=== PATIENT | female | born 1930 | race Caucasian/White ===

== ENCOUNTER 2019-07-22 08:06 | Inpatient (IN) | payer OTHER ==
[2019-07-22] VITALS (33 sets, daily range): BP systolic 76–124; BP diastolic 32–57
[~2019-07-22] VITALS: Ht 162.6 cm; Wt 68.5 kg
--- NOTE | 2019-07-22 08:08 | NUR ---
PT [id number] [facility] FOR DECREASE LOC AND HYPOTENSION, PT IS AAOX0 WITHDRAWS TO PAIN, ON MECH VENT VIA TRACH, HOOKED TO PIERCER OPERATOR, KEPT RESTED AND COMFORTABLE, WILL CONTINUE TO MONITOR.
--- NOTE | 2019-07-22 08:16 | NUR ---
SEEN AND EXAMINED BY .
--- NOTE | 2019-07-22 08:20 | NUR ---
RT AT BEDSIDE FOR MECH VENT SET UP.
--- NOTE | 2019-07-22 08:24 | NUR ---
RT NOTE PT PLACED ON VENT PER MD ORDER. SETTINGS ENDORSED BY PARAMEDICS AC 12 450 40% +5. PT HAS SHILEY 8 PERC CUFFED TRACHEOSTOMY TUBE IN PLACE. CUFF INFLATED. TRACH TUBE MIDLINE AND SECURE. ALARMS SET PER PROTOCOL AND AUDIBLE. VENT PLUGGED IN TO RED OUTLET. AMBU BAG AT BED SIDE. Addendum: 07/22/19 at 0826 by SHANNA PALOMINO RT Amended: Links added.
[2019-07-22] MEDS ORDERED: ALBUMIN 25% 12.5 GM/50 ML BOTTLE IV ONE (08:30)
[2019-07-22] MEDS ORDERED: IV NS 0.9% 1,000 ML BAG IV ONE ×2 (08:30→10:00)
--- NOTE | 2019-07-22 08:30 | NUR ---
GUERRA CATH CHANGED.
[2019-07-22] MEDS ORDERED: ALBUMIN 25% 50 ML IV ONE (08:33)
--- NOTE | 2019-07-22 08:41 | NUR ---
ER PHLEB AT BEDSIDE FOR BLOOD DRAW.
--- NOTE | 2019-07-22 09:00 | NUR ---
SKIN CARVER AT BEDSIDE FOR XRAY.
--- NOTE | 2019-07-22 09:08 | NUR ---
TECH AT BEDSIDE FOR US.
[2019-07-22 09:10] LABS: BASOPHILS % (AUTO) 0.2 % (0.0-2.0); HEMATOCRIT 27 % (33-45); HEMOGLOBIN 8.6 g/dL (11.5-14.8); LYMPHOCYTES # (AUTO) 0.3 /CMM (0.8-4.8); LYMPHOCYTES % (AUTO) 2.5 % (20.0-44.0); MEAN CORPUSCULAR HGB CONC 32 g/dl (31.0-36.0); MEAN CORPUSCULAR VOLUME 101 fL (82-100); MONOCYTES # (AUTO) 0.7 /CMM (0.1-1.30); MONOCYTES % (AUTO) 6.2 % (2.0-12.0); NEUTROPHILS % (AUTO) 91.1 % (43.0-81.0); PLATELET COUNT (AUTO) 134 /CMM (150-450); RED BLOOD CELL COUNT(AUTO) 2.67 MIL/uL (4.0-5.2)
[2019-07-22] MEDS ORDERED: MULT-439 PO (09:21)
[2019-07-22] MEDS ORDERED: LEVA1.2528 IH (09:21)
[2019-07-22] MEDS ORDERED: POLY17PO4 PO (09:21)
[2019-07-22] MEDS ORDERED: SODI50DR NS (09:21)
[2019-07-22] MEDS ORDERED: CA C1TAB98 PO (09:21)
[2019-07-22] MEDS ORDERED: ATOR10TA PO (09:21)
[2019-07-22] MEDS ORDERED: LEVO25TA7 PO (09:21)
[2019-07-22] MEDS ORDERED: METO50TA16 PO (09:21)
[2019-07-22] MEDS ORDERED: FLUT16SP NS (09:21)
[2019-07-22] MEDS ORDERED: VITA1CAP PO (09:21)
[2019-07-22] MEDS ORDERED: BISA10SU11 RC (09:21)
[2019-07-22] MEDS ORDERED: ASCO500C16 PO (09:21)
[2019-07-22] MEDS ORDERED: INSU100V7 SQ (09:21)
[2019-07-22] MEDS ORDERED: MELA3TAB PO (09:21)
[2019-07-22] MEDS ORDERED: INSU100V3 IJ (09:21)
[2019-07-22] MEDS ORDERED: ACET-868 PO (09:21)
[2019-07-22] MEDS ORDERED: CHOL10002 PO (09:21)
[2019-07-22] MEDS ORDERED: CHLO473M5 MM (09:21)
[2019-07-22] MEDS ORDERED: MEROPENEM 1 G in IV NS 0.9% 100 ML IV ONE (09:30)
[2019-07-22 09:32] LABS: ALANINE AMINOTRANSFERASE 18 U/L (12-78); ALBUMIN 1.8 g/dL (3.4-5.0); ALKALINE PHOSPHATASE 120 U/L (46-116); ASPARTATE AMINOTRANSFERASE 28 U/L (15-37); B-TYPE NATRIURETIC PEPTIDE 12146 PG/ML (0-125); BILIRUBIN,DIRECT 0.4 mg/dL (0.0-0.2); BILIRUBIN,TOTAL 0.7 mg/dL (0.2-1.0); CALCIUM, SERUM 8.5 mg/dL (8.5-10.1); CARBON DIOXIDE 29 mmol/L (21-32); CHLORIDE 105 mmol/L (98-107); CREATININE 0.7 mg/dL (0.6-1.3); GLUCOSE 115 mg/dL (74-106); POTASSIUM 5.2 mmol/L (3.5-5.1); SODIUM SERUM 140 mmol/L (136-145)
[2019-07-22 09:35] LABS: UREA NITROGEN, BLOOD 87 mg/dL (7-18)
--- NOTE | 2019-07-22 09:51 | NUR ---
PAGED DR. SUMNER
[2019-07-22] MEDS ORDERED: HEPARIN INFUSION/D5W 500 ML IV ONE (09:57)
[2019-07-22] MEDS ORDERED: HEPARIN SODIUM, PORCINE 5000 UNITS/1 ML VIAL ONE (09:57)
[2019-07-22] MEDS ORDERED: HEPARIN INFUSION/D5W 500 ML IV PRN (10:00)
--- NOTE | 2019-07-22 10:13 | NUR ---
ROOM GIVEN 257
[2019-07-22 10:24] LABS: APPEARANCE,URINE Cloudy (CLEAR); BILIRUBIN,URINE SMALL (NEGATIVE); BLOOD, URINE Negative Ery/uL (NEGATIVE); KETONES,URINE 15 (NEGATIVE); LEUKOCYTE ESTERASE ,URINE Trace (NEGATIVE); NITRITE, URINE Negative (NEGATIVE); PROTEIN,URINE 30 mg/dl (NEGATIVE); UGLUCOSE Negative (NEGATIVE); UROBILINOGEN,URINE >=8.0 EU/dL (0.2)
[2019-07-22 10:27] LABS: COLOR,URINE Dark Yellow (YELLOW)
[2019-07-22] MEDS ORDERED: HEPARIN SODIUM,PORCINE/PF 50 UNIT/5 ML DISP.SYRIN IV ONE (10:30)
[2019-07-22 10:33] LABS: BACTERIA,URINE Moderate /HPF (None Seen); RBC,URINE 0-3 /HPF (0-2); SQUAMOUS EPITHELIAL CELL,UR Moderate /HPF (None Seen)
--- NOTE | 2019-07-22 10:35 | NUR ---
PT IS WHEELED TO CT SCAN VIA ALS PROTOCOL.
--- NOTE | 2019-07-22 11:40 | NUR ---
RT RECEIVED PT TRACH'D ON [facility] VENT WITH SETTINGS PER MD ORDER. INTERVENTIONAL RADIOLOGY TECHNOLOGIST DONE. VENT PLUGGED INTO RED OUTLET. SPARE TRACH AND AMBU BAG AT HEAD OF BED. ALARMS ON AND AUDIBLE. SX'D AND MONITORED PRN. NO SOB NOTED AT THIS TIME. WILL CONTINUE TO MONITOR THE PATIENT FOR ANY CHANGES. Addendum: 07/22/19 at 1432 by ESTELA BRADLEY RT Amended: Links added.
--- NOTE | 2019-07-22 11:59 | NUR ---
REPORT GIVEN TO PARAG PEREZ FOR CLARKE. WITH ONGOING HEPARIN DRIP TITRATETO EFFECT.
--- NOTE | 2019-07-22 12:00 | NUR ---
AQUATIC CENTRE MANAGER ADMITTING NOTES: Rec'd report from Adolfo RN. Pt admitted to ICU 257 for SEPTIC SHOCK. Pt rec'd via juanjose accompanied by RN, RT & transporter. Pt on MV via trach, sating at 98%. SR on telemonitor. MATT PICC line patent & intact w/ no s/sx of infection/infiltration noted - w/ Heparin drip x 1100 u/hr (per report started at 10am). Has GT clamped but flushing well. Has FC draining to myranda UOP. Wound photos taken & placed in the chart. Initial wound care done, wound care consult & KCI mattress ordered. Pt oriented to room but unable to comprehend & follow commands at this time. Safety precaution in place w/ bed in lowest & locked pos. Call light w/in reach. 1245 Pt seen & examined by Dr. Barone w/ orders made & carried out. Per MD may remove old PICC line & insert new PICC line d/t presence of DVT MATT. 1300 Pt seen & examined by Dr. Simpson w/ orders may start on insulin sliding scale q6h while NPO. Order dietary consult. Agreed to remove old PICC line & insert new one. CN made aware. PICC line consent signed by Dr. Simpson as RN unable to reach any family members. 1500 Called [facility], spoke w/ Purvi TUTTLE, confirmed that pt is FULL CODE. Flu vaccine given 07/16/19 & PNA vaccine given 07/12/19. 1300 Pt seen & examined by Dr. Simpson w/ orders to may remove old PICC line & insert new PICC line.
[2019-07-22] MEDS ORDERED: FEE PK DOSING 1 MIN EA MC ONE (12:29)
[2019-07-22] MEDS ORDERED: NOREPINEPHRINE 8 MG in IV D5W 500 ML IV PRN ×2 (12:30→13:00)
[2019-07-22] MEDS ORDERED: IV NS 0.9% 1,000 ML IV PRN (12:30)
[2019-07-22] MEDS: Z GUARD REMEDY 4 OZ OINT TP SCH ×2 (12:42→20:17)
[2019-07-22] MEDS: PANTOPRAZOLE 40 MG VIAL IV SCH ×2 (12:46→20:16)
[2019-07-22] MEDS: IV D5/ 0.9% NACL 1,000 ML IV PRN ×2 (13:06→22:26)
--- NOTE | 2019-07-22 13:30 | NUR ---
RT ABG RESULTS SHOWN TO DR JULIO. NO CHANGES AT THIS TIME. CHRIS TUTTLE NOTIFIED AND AWARE OF CHANGES. WILL CONTINUE TO MONITOR THE PATIENT FOR ANY CHANGES. Addendum: 07/22/19 at 1432 by ESTELA BRADLEY RT Amended: Links added.
[2019-07-22 13:31] LABS: ABG BASE EXCESS 1.6 mmol/L; ABG OXYGEN SATURATION 94.2 % (92.0-98.5); ABG PCO2 39.3 mmHg (35.0-45.0); ABG PH 7.437 (7.350-7.450); ABG PO2 72.1 mmHg (75.0-100.0); AaDO2 601.6 mmHg; MetHb 0.3 % (0.0-1.5); PEEP,BG 0 cm H2O; SITE, ABG Left Radial; VT, ABG 450 mL
[2019-07-22] MEDS: HEPARIN INFUSION/D5W 500 ML IV PRN (13:32)
[2019-07-22] MEDS: VANCOMYCIN 1 GM in IV D5W 250ml IV SCH (13:32)
[2019-07-22] MEDS: BLOOD SUGAR DIAGNOSTIC 1 EACH STRIP IN SCH ×2 (17:14→23:13)
[2019-07-22] MEDS: INSULIN REGULAR, HUMAN 100 UNIT/ML 3 ML VIAL SQ PRN (17:15)
[2019-07-22] MEDS ORDERED: CELLULOSE,OXIDIZED 1 PKT EACH MC STA (17:21)
--- NOTE | 2019-07-22 17:30 | NUR ---
FATOU PICC Line insertion done by Charlene TUTTLE. STAT CXR done - results reviewed by RN. Noted moderate bleeding from the FATOU PICC line insertion. Charlene TUTTLE aware. Pressure dressing applied.
--- NOTE | 2019-07-22 18:00 | NUR ---
SPOKE TO DR. JULIO REGARDING CXR RESULTS- COMPLETE ATELECTASIS OF RIGHT LUNG WITH ORDERS RECEIVED FROM MD. RT ONDINA MADE AWARE OF ORDERS. CPT TO RIGHT LUNG Q4H, START MUCOMYST 10% HHN.
--- NOTE | 2019-07-22 18:19 | NUR ---
Rec'd call back from Dr. Vaughn (covering for Dr. Simpson) re: PTT >170 secs. Per MD, follow protocol - check PTT after 6 hours. MD also made aware re: bleeding from FATOU PICC line, agreed for surgicel 1 dose.
--- NOTE | 2019-07-22 18:44 | NUR ---
ASSEMBLER DRY CELL AND BATTERY CLOSING NOTES Pt resting on bed, not in any distress, A/O x1. Tolerating MV settings via trach, sating at 100%. SR on telemonitor. Has MATT PICC line w/ D5NS x 125 cc/hr infusing well, Heparin drip off for now. Has new FATOU PICC line but per Charlene RN do not use for now d/t presence of R lung atelectasis & location of the PICC line tip on R atrium, she will re-evaluate grey. Dressing on FATOU PICC line will be change by Charlene TUTTLE. FC draining well to BSB to myranda UOP. GT kept clamped. Safety precaution kept in place w/ bed in lowest & locked pos. Call light placed w/in reach. Will endorse to PM RN for CLARKE.
--- NOTE | 2019-07-22 19:30 | NUR ---
RN NOTE: RECEIVED PT IN BED AWAKE WITH NO APPARENT DISTRESS NOTED. NO FACIAL GRIMACING OR ANY SIGNS OF PAIN NOTED. ON [facility] VENT, SETTINGS ORDERED. NO SOB NOTED AT THIS TIME. SATURATING WELL. SINUS RHYTHM ON TELE MONITOR HR 86BPM. RIGHT UPPER ARM PICC LINE INTACT AND PATENT, FLUSHING WELL. IVF INFUSING WELL. LEFT UPPER ARM PICC LINE DRESSING CHANGED BY CARLITOS TUTTLE. GUERRA CATH INTACT AND DRAINING WELL. KEPT CLEAN, DRY AND COMFORTABLE. SAFETY AND FALL PRECAUTIONS OBSERVED AND MAINTAINED. WILL CONTINUE TO MONITOR PT.
--- NOTE | 2019-07-22 20:02 | NUR ---
PT RECEIVED TRACH ON MECH VENT WITH THE SETTINGS OF AC 12, 450, PEEP 0, FIO2 100%. PT IS AWAKE . SX'D AND LAVAGED NEEDED. NO RESPIRATORY DISTRESS NOTED AT THIS TIME. KETTLEMAN DONE. TRACH SECURE. VENT ALARMS SET AND AUDIBLE. AMBU BAG AT BEDSIDE. WILL CONTINUE TO MONITOR THE PT.
[2019-07-22] MEDS: MEROPENEM 1 G in IV NS 0.9% 100 ML IV SCH (20:16)
[2019-07-22] MEDS: ACETAMINOPHEN 650 MG/20.3 ML UDC GT PRN (20:16)
[2019-07-22] MEDS: INSULIN GLARGINE, 100 UNIT/ML CARTRIDGE SQ SCH (22:00)
[2019-07-22] MEDS: ALBUTEROL FS 2.5 MG/3 ML VIAL.NEB NEB PRN (22:02)
[2019-07-22] MEDS: ACETYLCYSTEINE 10% SOLN 400 MG/4 ML VIAL NEB SCH (22:02)
--- NOTE | 2019-07-22 23:13 | NUR ---
RN NOTE: LANTUS DUE AT 2200 NOT GIVEN, BS 70MG/DL, PT NPO.
[2019-07-23] VITALS (32 sets, daily range): BP systolic 96–145; BP diastolic 35–81
[2019-07-23] MEDS ORDERED: HEPARIN SODIUM, PORCINE 5000 UNITS/1 ML VIAL IV ONE ×2 (00:30→08:00)
[2019-07-23] MEDS: HEPARIN INFUSION/D5W 500 ML IV PRN ×2 (00:37→22:34)
--- NOTE | 2019-07-23 00:37 | NUR ---
RN NOTE: HEPARIN DRIP RESTARTED PER PROTOCOL, aPTT 39.2. NO SIGNS/SYMPTOMS OF BLEEDING NOTED AT THIS TIME. WILL CONTINUE TO MONITOR PT.
[2019-07-23] MEDS: BLOOD SUGAR DIAGNOSTIC 1 EACH STRIP IN SCH ×4 (05:42→23:07)
[2019-07-23] MEDS: IV D5/ 0.9% NACL 1,000 ML IV PRN ×3 (06:07→23:45)
--- NOTE | 2019-07-23 06:40 | NUR ---
RN NOTE: CALLED LAB TO FOLLOW UP THE aPTT RESULT, PER LAB THEY'RE STILL RUNNING IT.
--- NOTE | 2019-07-23 06:41 | NUR ---
RN NOTE: NO CHANGES NOTED THROUGHOUT THE SHIFT. NO APPARENT DISTRESS NOTED. NO FACIAL GRIMACING OR ANY SIGNS OF PAIN NOTED. ON [facility] VENT, SETTINGS ORDERED. NO SOB NOTED. SUCTIONED NEEDED. SINUS RHYTHM ON TELE MONITOR HR 80 BPM. RIGHT UPPER ARM INTACT AND PATENT, WITH ONGOING IVF OF D5NS RUNNING AT 125ML/HR AND HEPARIN DRIP RUNNING AT 100 UNITS/HR. NO SIGNS/SYMPTOMS OF BLEEDING NOTED. GUERRA CATH INTACT, DRAINED 400ML OF URINE OUPUT. KEPT CLEAN, DRY AND COMFORTABLE. SAFETY AND FALL PRECAUTIONS OBSERVED AND MAINTAINED. WILL ENDORSE TO DAY SHIFT RN FOR CONTINUITY OF CARE. Addendum: 07/23/19 at 0659 by DIONISIO CRUZ RN HEPARIN DRIP RUNNING AT 1200ML/HR PER PROTOCOL
[2019-07-23 06:46] LABS: CALCIUM, SERUM 7.2 mg/dL (8.5-10.1); CREATININE 0.7 mg/dL (0.6-1.3); MAGNESIUM 2.1 mg/dL (1.8-2.4); PHOSPHORUS 3.5 mg/dL (2.5-4.9); POTASSIUM 3.9 mmol/L (3.5-5.1)
[2019-07-23 06:47] LABS: BASOPHILS % (AUTO) 0.1 % (0.0-2.0); LYMPHOCYTES # (AUTO) 0.4 /CMM (0.8-4.8); LYMPHOCYTES % (AUTO) 5.9 % (20.0-44.0); MEAN CORPUSCULAR HGB CONC 33 g/dl (31.0-36.0); MEAN CORPUSCULAR VOLUME 98 fL (82-100); MONOCYTES # (AUTO) 0.4 /CMM (0.1-1.30); MONOCYTES % (AUTO) 5.8 % (2.0-12.0); NEUTROPHILS # (AUTO) 6.5 /CMM (1.8-8.9); NEUTROPHILS % (AUTO) 88.2 % (43.0-81.0); PLATELET COUNT (AUTO) 118 /CMM (150-450); RED BLOOD CELL COUNT(AUTO) 2.08 MIL/uL (4.0-5.2); WHITE BLOOD COUNT (AUTO) 7.4 K/uL (4.3-11.0)
[2019-07-23 07:01] LABS: HEMATOCRIT 20 % (33-45); HEMOGLOBIN 6.6 g/dL (11.5-14.8)
--- NOTE | 2019-07-23 07:01 | NUR ---
RN NOTE: RECEIVED A CALL FROM LAB REGARDING PATIENT'S CRITICAL LOW HGB 6.[address] SUMNER NOTIFIED. NO SIGNS/SYMPTOMS OF BLEEDING NOTED. ENDORSED TO DAY SHIFT RN FOR FOLLOW UP.
--- NOTE | 2019-07-23 07:12 | NUR ---
CHICLE GRINDER FEEDER INITIAL NOTES Rec'd pt on bed, not in any distress, A/O x 1. On MV via trach, sating at 100%. SR on telemonitor. GT clamped for now, NPO status. Has MATT PICC line w/ D5NS x 125 cc/hr & Heparin drip x 1200 u/hr infusing well. Has FC draining to BSB w/ adequate myranda UOP. Has FATOU PICC line - still pending for use, awaiting PICC line nurse. Safety precaution in place w/ bed in lowest & locked pos. Call light placed w/in reach. Will cont to monitor & attend pt needs.
[2019-07-23] MEDS: LEVOTHYROXINE SODIUM 25 MCG TABLET PO SCH (07:54)
--- NOTE | 2019-07-23 08:09 | NUR ---
719 called EPIC air traffic controller re: 6.03/24, pt on heparin drip. awaiting callback. 729 called again EPIC air traffic controller for low H/H. awaiting call back. [address] Vaughn made aware of low H/H while pt on heparin drip. Per , transfuse 1 unit of PRBC & still continue to heparin protocol.
[2019-07-23] MEDS: VANCOMYCIN 1 GM in IV D5W 250ml IV SCH (08:16)
[2019-07-23 08:19] LABS: BAND % (MANUAL) 4 % (0.0-5.0); LYMPHOCYTES % (MANUAL) 6 % (16-48); MONOCYTES % (MANUAL) 5 % (0-11.0); NEUTROPHILS % (MANUAL) 85 (42-76)
[2019-07-23] MEDS: PANTOPRAZOLE 40 MG VIAL IV SCH ×2 (08:37→20:04)
[2019-07-23] MEDS: MEROPENEM 1 G in IV NS 0.9% 100 ML IV SCH ×2 (08:37→20:01)
[2019-07-23] MEDS: Z GUARD REMEDY 4 OZ OINT TP SCH ×2 (08:38→20:04)
--- NOTE | 2019-07-23 10:30 | NUR ---
Pt seen & examined by Dr. Vaughn, updated about pt status. Made him aware re: FATOU PICC line still not being use for now, awaiting PICC line nurse to pull back.
[2019-07-23] MEDS: ACETYLCYSTEINE 10% SOLN 400 MG/4 ML VIAL NEB SCH ×3 (11:32→22:05)
[2019-07-23] MEDS: ALBUTEROL FS 2.5 MG/3 ML VIAL.NEB NEB PRN (11:36)
[2019-07-23] MEDS: INSULIN REGULAR, HUMAN 100 UNIT/ML 3 ML VIAL SQ PRN ×2 (12:35→18:02)
--- NOTE | 2019-07-23 13:05 | NUR ---
1 unit of PRBC transfused w/o BT reaction noted.
--- NOTE | 2019-07-23 14:30 | NUR ---
Stool specimen sent to lab for occult test.
--- NOTE | 2019-07-23 16:00 | NUR ---
Rec'd call back from Dr. Vaughn re: PTT>170 secs. Made him aware that heparin drip was held at 1400, MD agreed & ordered to check PTT after 6 hours then follow protocol.
--- NOTE | 2019-07-23 16:30 | NUR ---
Per Charlene PICC line PRN, FATOU PICC line pulled back by 3cm & is okay to use. CN made aware.
--- NOTE | 2019-07-23 17:00 | NUR ---
Dr. Vaughn made aware re: concern of the son for presence mass. Son requesting if previous records from [facility] can be retrieve. Per , he will talk to Dr. Simpson.
[2019-07-23] MEDS: ACETAMINOPHEN 650 MG/20.3 ML UDC GT PRN (17:59)
--- NOTE | 2019-07-23 18:52 | NUR ---
PROPOSAL ENGINEER CLOSING NOTES Pt resting on bed, not in any distress, A/O x1. Tolerating MV settings via trach, sating at 100%. SR on telemonitor. Has MATT PICC line in place. Has new FATOU PICC line w/ D5NS x 125 cc/hr infusing well, Heparin drip off for now. FC draining well to BSB to myranda UOP. GT kept clamped. Safety precaution kept in place w/ bed in lowest & locked pos. Call light placed w/in reach. Will endorse to PM RN for CLARKE.
[2019-07-23 19:19] LABS: OCCULT BLOOD STOOL POSITIVE (NEGATIVE)
--- NOTE | 2019-07-23 19:45 | NUR ---
RN NOTE: RECEIVED PT IN BED AWAKE, MOUTHS WORDS. NO APPARENT DISTRESS NOTED. NO FACIAL GRIMACING OR ANY SIGNS OF PAIN NOTED. ON [facility] VENT, SETTINGS ORDERED. NO SOB NOTED AT THIS TIME. SATURATING WELL. SINUS RHYTHM ON TELE MONITOR HR 75 BPM. LEFT UPPER ARM PICC LINE INTACT AND PATENT WITH D5NS RUNNING AT 125ML/HR, HEPARIN ON HOLD AT THIS TIME. NO SIGNS/SYMPTOMS OF BLEEDING NOTED. GUERRA CATH INTACT AND DRAINING WELL. KEPT CLEAN, DRY AND COMFORTABLE. SAFETY AND FALL PRECAUTIONS OBSERVED AND MAINTAINED. WILL CONTINUE TO MONITOR PT.
--- NOTE | 2019-07-23 20:42 | NUR ---
RN NOTE: CALLED LAB REGARDING PTT RESULT, PER LAB THEY'RE STILL RUNNING IT.
--- NOTE | 2019-07-23 21:12 | NUR ---
RN NOTE: NOTIFIED KODY MURRAY NP REGARDING PTT RESULT AND POSITIVE STOOL OB. STILL WAITING FOR ORDERS. NO ACTIVE BLEEDING NOTED. WILL CONTINUE TO MONITOR PT.
[2019-07-23 22:25] LABS: BASOPHILS % (AUTO) 0.2 % (0.0-2.0); HEMATOCRIT 26 % (33-45); HEMOGLOBIN 8.3 g/dL (11.5-14.8); LYMPHOCYTES # (AUTO) 0.4 /CMM (0.8-4.8); LYMPHOCYTES % (AUTO) 5.5 % (20.0-44.0); MEAN CORPUSCULAR HGB CONC 33 g/dl (31.0-36.0); MEAN CORPUSCULAR VOLUME 95 fL (82-100); MONOCYTES # (AUTO) 0.4 /CMM (0.1-1.30); MONOCYTES % (AUTO) 6.3 % (2.0-12.0); NEUTROPHILS # (AUTO) 5.7 /CMM (1.8-8.9); PLATELET COUNT (AUTO) 128 /CMM (150-450); RED BLOOD CELL COUNT(AUTO) 2.68 MIL/uL (4.0-5.2); WHITE BLOOD COUNT (AUTO) 6.5 K/uL (4.3-11.0)
[2019-07-23] MEDS ORDERED: PANTOPRAZOLE 40 MG VIAL IV SCH (22:30)
[2019-07-23] MEDS ORDERED: HYDROCORTISONE SOD SUCCINATE 100 MG/2 ML VIAL IV SCH (22:30)
--- NOTE | 2019-07-23 22:30 | NUR ---
RN NOTE: ORDER RECEIVED FROM KODY MURRAY NP TO CONTINUE HEPARIN DRIP BUT DON'T GIVE BOLUS DOSE. ORDER CARRIED OUT AND DONE. WILL CONTINUE TO MONITOR PT.
[2019-07-23] MEDS ORDERED: HYDROCORTISONE SOD SUCCINATE 100 MG/2 ML VIAL IV ONE (23:00)
[2019-07-23] MEDS ORDERED: OCTREOTIDE 500 MCG/ML VIAL ONE (23:04)
[2019-07-23] MEDS: INSULIN GLARGINE, 100 UNIT/ML CARTRIDGE SQ SCH (23:09)
[2019-07-23] MEDS: OCTREOTIDE 1,250 MCG in IV NS 0.9% 247.5 ML IV PRN (23:26)
[2019-07-24] VITALS (25 sets, daily range): BP systolic 92–155; BP diastolic 44–106
[2019-07-24] MEDS: VANCOMYCIN 1 GM in IV D5W 250ml IV SCH ×2 (02:05→20:55)
[2019-07-24 04:41] LABS: BASOPHILS % (AUTO) 0.1 % (0.0-2.0); HEMATOCRIT 28 % (33-45); LYMPHOCYTES # (AUTO) 0.3 /CMM (0.8-4.8); LYMPHOCYTES % (AUTO) 3.6 % (20.0-44.0); MEAN CORPUSCULAR HGB CONC 33 g/dl (31.0-36.0); MEAN CORPUSCULAR VOLUME 96 fL (82-100); MONOCYTES # (AUTO) 0.5 /CMM (0.1-1.30); MONOCYTES % (AUTO) 5.4 % (2.0-12.0); NEUTROPHILS # (AUTO) 7.6 /CMM (1.8-8.9); NEUTROPHILS % (AUTO) 90.9 % (43.0-81.0); PLATELET COUNT (AUTO) 129 /CMM (150-450); RED BLOOD CELL COUNT(AUTO) 2.88 MIL/uL (4.0-5.2); WHITE BLOOD COUNT (AUTO) 8.4 K/uL (4.3-11.0)
[2019-07-24 05:00] LABS: CALCIUM, SERUM 7.6 mg/dL (8.5-10.1); CARBON DIOXIDE 26 mmol/L (21-32); CHLORIDE 112 mmol/L (98-107); CREATININE 0.5 mg/dL (0.6-1.3); GLUCOSE 136 mg/dL (74-106); POTASSIUM 3.4 mmol/L (3.5-5.1); SODIUM SERUM 146 mmol/L (136-145); UREA NITROGEN, BLOOD 58 mg/dL (7-18)
[2019-07-24] MEDS: BLOOD SUGAR DIAGNOSTIC 1 EACH STRIP IN SCH ×3 (06:06→17:23)
--- NOTE | 2019-07-24 06:09 | NUR ---
RN NOTE: RECEIVED A CALL FROM LAB REGARDING PTT RESULT 176. PAGED KODY MURRAY, LOU 3X, STILL AWAITING RESPONSE. CHARGE NURSE AND CABINET WORKER AWARE.
--- NOTE | 2019-07-24 06:20 | NUR ---
RN NOTE: DR. YU CALLED BACK WITH ORDERS TO STOP HEPARIN DRIP FOR 2HRS, THEN AFTER 2HRS RESUME DRIP WITH A RATE OF 1200 UNITS/H. ORDER CARRIED OUT AND DONE. NO ACTIVE BLEEDING NOTED AT THIS TIME.
--- NOTE | 2019-07-24 07:12 | NUR ---
FOAM FABRICATOR INITIAL NOTES Rec'd pt on bed, not in any distress, A/O x 1. On MV via trach, sating at 100%. SR on telemonitor. GT clamped for now, NPO status. Has FATOU PICC line w/ D5NS x 125 cc/hr & Heparin drip off at this time (to restart at 0820 to 1200u/hr as ordered). Has FC draining to BSB w/ adequate myranda UOP. Has MATT PICC line in place. Safety precaution in place w/ bed in lowest & locked pos. Call light placed w/in reach. Will cont to monitor & attend pt needs.
[2019-07-24] MEDS: LEVOTHYROXINE SODIUM 25 MCG TABLET PO SCH (07:32)
--- NOTE | 2019-07-24 07:40 | NUR ---
INVESTMENT TRADER OPENING NOTES Patient resting on bed, asleep but arouses to verbal and tactile stimuli, on mechanical ventilator tolerating settings well, no sob/acute distress noted, A/O to self, mouth words, Serbian speaking, o2 saturation at 100% at this time, SR on telemonitor hr 70s at this time, MATT PICC line in place and Has new FATOU PICC line w/ D5NS x 125 cc/hr, Sandostatin x 10cc/hr & Heparin drip x 1000u/hr infusing well. FC in placed draining well by gravity yellow urine, GT kept clamped tfo, all safety precaution kept in place, bed locked and in lowest position, Call light w/in reach, Will continue to monitor closely.
--- NOTE | 2019-07-24 08:35 | NUR ---
Pt seen & examined by Dr. Vaughn w/ orders made & carried out. updated about pt condition & status. Addendum: 07/24/19 at 1156 by CHRIS PABLO RN Addendum: Asked Dr. Vaughn if MATT PICC line need to be pulled out or keep it for now - no definite orders given by at this time.
[2019-07-24] MEDS ORDERED: POTASSIUM CHLORIDE 20 MEQ POWDER PACKET NG SCH (09:00)
[2019-07-24] MEDS: LACTOBACILLUS RHAMNOSUS GG 1 EACH CAP.SPRINK PO SCH ×2 (09:05→17:23)
[2019-07-24] MEDS: PANTOPRAZOLE 40 MG VIAL IV SCH ×2 (09:05→21:30)
[2019-07-24] MEDS: MEROPENEM 1 G in IV NS 0.9% 100 ML IV SCH ×2 (09:05→21:30)
[2019-07-24] MEDS: Z GUARD REMEDY 4 OZ OINT TP SCH ×2 (09:06→21:31)
--- NOTE | 2019-07-24 09:39 | NUR ---
Trop 0.[address] Guzman w/ NNO.
--- NOTE | 2019-07-24 10:40 | NUR ---
Pt seen & examined by Dr. Ortiz w/ orders made & carried out. Vent changes order to increase fio2 to 50%, PEEP 5. RT aware. Per MD, obtain medical records from [facility]. CPT done on L chest c/o RT John. ABG done after & reviewed by . 1120 Telephone consent to release information got from pt's son Neil. Request was faxed to [facility], receipt placed in the chart.
[2019-07-24] MEDS: ALBUTEROL FS 2.5 MG/3 ML VIAL.NEB NEB PRN ×2 (10:54→21:31)
[2019-07-24] MEDS: ACETYLCYSTEINE 10% SOLN 400 MG/4 ML VIAL NEB SCH ×2 (10:54→21:31)
[2019-07-24] MEDS: IV D5/ 0.9% NACL 1,000 ML IV PRN ×2 (11:25→20:01)
[2019-07-24] MEDS: INSULIN REGULAR, HUMAN 100 UNIT/ML 3 ML VIAL SQ PRN ×2 (12:23→17:23)
[2019-07-24 12:35] LABS: ABG BASE EXCESS -2.6 mmol/L; ABG OXYGEN SATURATION 97.4 % (92.0-98.5); ABG PH 7.417 (7.350-7.450); ABG PO2 110.5 mmHg (75.0-100.0); AaDO2 207.8 mmHg; COHb 1.1 % (0.5-1.5); MetHb 0.3 % (0.0-1.5); PEEP,BG 5 cm H2O; SITE, ABG Left Radial; VT, ABG 450 mL
--- NOTE | 2019-07-24 15:42 | NUR ---
Rec'd call back from Dr. Vaughn re: PTT 145.9 w/ orders to hold Heparin drip for 2 hours then resume at 1000 u/hr. Recheck PTT after 6 hours.
--- NOTE | 2019-07-24 18:54 | NUR ---
FIGURINE MAKER CLOSING NOTES Pt resting on bed, not in any distress, A/O x1. Tolerating MV settings via trach, sating at 100%. SR on telemonitor. Has MATT PICC line in place. Has new FATOU PICC line w/ D5NS x 125 cc/hr, Sandostatin x 10cc/hr & Heparin drip x 1000u/hr infusing well. FC draining well to BSB to myranda UOP. GT kept clamped. Safety precaution kept in place w/ bed in lowest & locked pos. Call light placed w/in reach. Will endorse to PM RN for CLARKE.
[2019-07-24] MEDS: OCTREOTIDE 1,250 MCG in IV NS 0.9% 247.5 ML IV PRN (21:58)
[2019-07-24] MEDS: INSULIN GLARGINE, 100 UNIT/ML CARTRIDGE SQ SCH (22:00)
--- NOTE | 2019-07-24 23:58 | NUR ---
ANODE REBUILDER NOTES, RECEIVED RESULTS FROM LAB FOR PT/PTT AT THIS TIME 124.4, HOLD HEPARIN AT THIS TIME PER PROTOCOL, WILL HOLD FOR ONE HOUR, THEN DECREASE DRIP BY 3 UNITS/KG/H
[2019-07-25] VITALS (24 sets, daily range): BP systolic 97–166; BP diastolic 43–104
[2019-07-25] MEDS: BLOOD SUGAR DIAGNOSTIC 1 EACH STRIP IN SCH ×5 (00:54→23:32)
[2019-07-25] MEDS: HEPARIN INFUSION/D5W 500 ML IV PRN (00:59)
--- NOTE | 2019-07-25 00:59 | NUR ---
SINGE MACHINE OPERATOR NOTES, HEPARIN DRIP STARTED AT THIS TIME AFTER ONE HOUR HOLD PER PROTOCOL, NEW RATE INFUSION 800 UNITS/KG/HR/16ML PER PROTOCOL, AND PTT ORDERED FOR 0700 AM TODAY, WILL CONTINUE TO MONITOR CLOSELY
[2019-07-25 04:35] LABS: BASOPHILS % (AUTO) 0.1 % (0.0-2.0); HEMATOCRIT 28 % (33-45); HEMOGLOBIN 9.2 g/dL (11.5-14.8); LYMPHOCYTES # (AUTO) 0.3 /CMM (0.8-4.8); LYMPHOCYTES % (AUTO) 3.9 % (20.0-44.0); MEAN CORPUSCULAR HGB CONC 33 g/dl (31.0-36.0); MEAN CORPUSCULAR VOLUME 97 fL (82-100); MONOCYTES # (AUTO) 0.5 /CMM (0.1-1.30); MONOCYTES % (AUTO) 6.6 % (2.0-12.0); NEUTROPHILS # (AUTO) 6.9 /CMM (1.8-8.9); NEUTROPHILS % (AUTO) 89.4 % (43.0-81.0); PLATELET COUNT (AUTO) 138 /CMM (150-450); WHITE BLOOD COUNT (AUTO) 7.7 K/uL (4.3-11.0)
[2019-07-25 04:51] LABS: ALANINE AMINOTRANSFERASE 19 U/L (12-78); ALKALINE PHOSPHATASE 91 U/L (46-116); ASPARTATE AMINOTRANSFERASE 15 U/L (15-37); BILIRUBIN,TOTAL 0.9 mg/dL (0.2-1.0); CALCIUM, SERUM 7.7 mg/dL (8.5-10.1); CARBON DIOXIDE 28 mmol/L (21-32); CHLORIDE 113 mmol/L (98-107); CREATININE 0.5 mg/dL (0.6-1.3); GLUCOSE 235 mg/dL (74-106); MAGNESIUM 1.9 mg/dL (1.8-2.4); PHOSPHORUS 2.9 mg/dL (2.5-4.9); POTASSIUM 3.9 mmol/L (3.5-5.1); SODIUM SERUM 146 mmol/L (136-145); TOTAL PROTEIN, SERUM 4.3 g/dL (6.4-8.2); UREA NITROGEN, BLOOD 46 mg/dL (7-18)
[2019-07-25 05:03] LABS: ALBUMIN 1.3 g/dL (3.4-5.0)
[2019-07-25] MEDS: IV D5/ 0.9% NACL 1,000 ML IV PRN ×3 (05:36→23:32)
[2019-07-25] MEDS: INSULIN REGULAR, HUMAN 100 UNIT/ML 3 ML VIAL SQ PRN ×3 (06:23→17:44)
--- NOTE | 2019-07-25 07:35 | NUR ---
CONCILIATION COURT JUDGE OPENING NOTES Patient awake at this time, on mechanical ventilator tolerating settings well, no sob/acute distress noted, A/O to self, mouth words, Persian speaking, o2 saturation at 100% at this time, SR on telemonitor hr 70s-80s most of the night, MATT PICC line in place and Has new FATOU PICC line w/ D5NS x 125 cc/hr, Sandostatin x 10cc/hr & Heparin drip x 800u/hr infusing well, and patient tolerated well, ptt again at 0700, awaiting for results, FC in placed draining well by gravity yellow/myranda urine, GT kept clamped tfo, all safety precaution kept in place, albumin 1.3 this morning, reported to Enrique with no new orders, Bed locked and in lowest position, Call light w/in reach, endorsed to PARAG Garcia for continuation of care.
[2019-07-25] MEDS: LACTOBACILLUS RHAMNOSUS GG 1 EACH CAP.SPRINK PO SCH ×2 (08:29→16:16)
[2019-07-25] MEDS: LEVOTHYROXINE SODIUM 25 MCG TABLET PO SCH (08:29)
[2019-07-25] MEDS: PANTOPRAZOLE 40 MG VIAL IV SCH ×2 (08:29→21:02)
[2019-07-25] MEDS: MEROPENEM 1 G in IV NS 0.9% 100 ML IV SCH (08:30)
[2019-07-25] MEDS: ACETYLCYSTEINE 10% SOLN 400 MG/4 ML VIAL NEB SCH ×2 (08:49→21:00)
[2019-07-25 09:10] LABS: ABG BASE EXCESS -0.6 mmol/L; ABG OXYGEN SATURATION 98.6 % (92.0-98.5); ABG PCO2 37.3 mmHg (35.0-45.0); ABG PH 7.421 (7.350-7.450); ABG PO2 222.2 mmHg (75.0-100.0); AaDO2 164.6 mmHg; COHb 0.5 % (0.5-1.5); MetHb 0.3 % (0.0-1.5); O2Hb 97.8 % (94.0-97.0); PEEP,BG 5 cm H2O; SITE, ABG Right Radial; VENT MODE, BG AC 12 450 60% +5; VT, ABG 450 mL
[2019-07-25] MEDS: Z GUARD REMEDY 4 OZ OINT TP SCH ×2 (09:12→21:03)
--- NOTE | 2019-07-25 09:26 | NUR ---
WOUND CARE CONSULT: PT PRESENTS WITH MULTIPLE SKIN ISSUES INCLUDING PROFOUND GENERALIZED EDEMA WITH WEEPING OF LEFT UPPER EXTREMITY AND 3+ PITTING OF LOWER EXTREMITIES WITH RT POSTERIOR LOWER LEG WOUND, SACRAL STAGE 4 NECROTIC WOUND WITH FOUL ODOR, RT BUTTOCK INTACT DEEP TISSUE INJURY, PERIANAL INCONTINENCE ASSOCIATED SKIN DAMAGE AND MIDBACK SCARRING, ALL PRESENT ON ADMISSION. RECOMMEND DPM CONSULT FOR RT LOWER LEG WOUND. DR RUIZ AWARE OF DPM CONSULT REQUEST. SURGICAL CONSULT REQUESTED FOR SACRAL WOUND. DR WILLINGHAM AWARE OF SURGICAL CONSULT REQUEST. PT ON FIRST STEP CIRRUS LOW AIRLOSS MATTRESS. ALL SKIN PROTECTION RECOMMENDATIONS DISCUSSED WITH NURSING STAFF. DEFER TO SURGICAL TEAM AND DPM FOR WOUND TREATMENT PLAN. WILL SEE PRShwetha HANSON IN AGREEMENT WITH PLAN OF CARE.
--- NOTE | 2019-07-25 09:37 | NUR ---
RN NOTE: CALLED AND SPOKE WITH MR. SHANNA MEDEIROS (SON) AND VERIFIED WITH HIM IF HE WILL BE CONSENTING FOR THE BRONCHOSCOPY WITH POSSIBLE BIOPSY PER DR. JULIO BY TOMORROW. AND SON GAVE A TELEPHONE CONSENT AND WAS VERIFIED WITH ANOTHER NURSE, Sonya HARDEN RN. CONSENT WAS SIGNED AND FILED TO PATIENT'S CHART.
[2019-07-25] MEDS ORDERED: SILVER NITRATE APPLICATOR 1 EA BOX TP ONE (11:30)
[2019-07-25] MEDS ORDERED: LIDOCAINE 1%-EPI 1:100,000 20 ML VIAL TP ONE (11:30)
--- NOTE | 2019-07-25 12:00 | NUR ---
RN NOTE: CALLED AND PAGED JARRET RIBEIRO NP FOR GI REGARDING THE PENDING CONSULTATION FOR THE PATIENT. AWAITING FOR HALF SECTION IRONER'S RESPONSE.
--- NOTE | 2019-07-25 12:03 | NUR ---
RN NOTE: CALLED AND LEFT A VOICE MESSAGE TO SHANNA MEDEIROS (SON) REGARDING THE SERIAL SACRUM DEBRIDEMENT PLAN FROM Jaimee SHEA, WOUND CARE PA. AWAITING FOR CALL BACK.
--- NOTE | 2019-07-25 12:32 | NUR ---
RN NOTE: RECEIVED A RESPONSE FROM JARRET RIBEIRO NP AND ACCORDING TO HER SHE WILL SEE THE PATIENT LATER TODAY.
[2019-07-25] MEDS: DAKINS QUARTER STRENGTH (0.125%) 480 ML BOTTLE TOP SCH (13:00)
[2019-07-25] MEDS: CLOTRIMAZOLE 1% 15 GM TUBE TP SCH ×2 (13:00→16:17)
[2019-07-25] MEDS: VANCOMYCIN 1 GM in IV D5W 250ml IV SCH (13:01)
--- NOTE | 2019-07-25 13:29 | NUR ---
RN NOTE: RECEIVED A CALL BACK FROM SHANNA MEDEIROS, SON AND HE VERBALLY CONSENTED OVER THE TELEPHONE FOR THE SERIAL DEBRIDEMENT OF THE SACRUM AND WAS VERIFIED WITH CHARGE NURSE PARAG JOVEL. INFORMED CONSENT WAS FILED TO THE PATIENT'S CHART.
--- NOTE | 2019-07-25 15:00 | NUR ---
RN NOTE: DR. GAVIN AND Jaimee SHEA PERFORMED THE BEDSIDE SACRUM DEBRIDEMENT. PATIENT TOLERATED IT WELL. TOOK PICTURE OF THE SACRUM S/P DEBRIDEMENT AND FILED TO PATIENT'S CHART.
--- NOTE | 2019-07-25 15:29 | NUR ---
RN NOTE: CALLED AND PAGED DR. SUMNER REGARDING THE URINE CULTURE + FOR CRE AND KLEBSEILLA PNEUMONIAE. PATIENT PLACED ON CONTACT ISOLATION AND PER MD, HE WILL CALL INFECTIOUS DISEASE TO FOLLOW THE CASE.
[2019-07-25] MEDS: OCTREOTIDE 1,250 MCG in IV NS 0.9% 247.5 ML IV PRN (16:09)
--- NOTE | 2019-07-25 16:14 | NUR ---
RN NOTE: DR. JULIO GAVE A VERBAL ORDER FOR A LIDOCAINE 2% JELLY FOR THE BRONCHOSCOPY TOMORROW. ORDER NOTED AND CARRIED OUT.
[2019-07-25] MEDS ORDERED: PEG 3350/NA SULF,BICARB,CL/KCL 4,000 ML BOTTLE PO ONE ×2 (17:30→20:00)
[2019-07-25] MEDS ORDERED: NA PHOS,M-B/NA PHOS,DI-BA 1 EA ENEMA RC PRN (17:30)
[2019-07-25] MEDS ORDERED: MAGNESIUM CITRATE 296 ML BOTTLE PO ONE (17:30)
[2019-07-25] MEDS: SUCRALFATE 1 G/10 ML UDC GT SCH ×2 (17:41→21:02)
[2019-07-25] MEDS ORDERED: FEE PK DOSING 1 MIN EA MC ONE (18:18)
[2019-07-25] MEDS ORDERED: DOSING PER PHARMACY-AMIKACI IV XX PRN (18:30)
--- NOTE | 2019-07-25 19:55 | NUR ---
RN NOTE: BEDSIDE REPORT WAS GIVEN TO PM SHIFT NURSE FOR CONTINUITY OF CARE. PATIENT CONTINUED TO BE ON HEPARIN DRIP PER PROTOCOL AND NO ACTIVE BLEEDING NOTED. SEEN BY JARRET RIBEIRO NP AND ORDERED EGD/COLONOSCOPY FOR TOMORROW AT 0730. PATIENT ON CONTACT ISOLATION FOR CRE URINE.
[2019-07-25] MEDS: AMIKACIN 500 MG in IV D5W 100 ML IV SCH (20:13)
--- NOTE | 2019-07-25 20:21 | NUR ---
FISHER SCALLOP NOTE OBTAINED CONSENT FOR COLONOSCOPY AND EGD WITH PATIENT SON SHANNA MEDEIROS AT [phone]. CONSENT WITNESSED BY ANASTASIIA TUTTLE
[2019-07-25] MEDS ORDERED: CLINDAMYCIN IV RTU IN D5W 900 MG/50 ML PIGGYBACK IV SCH (21:00)
[2019-07-25] MEDS: CLINDAMYCIN 900 MG in IV D5W 50 ML IV SCH (21:02)
[2019-07-25] MEDS: INSULIN GLARGINE, 100 UNIT/ML CARTRIDGE SQ SCH (23:31)
[2019-07-26] VITALS (27 sets, daily range): BP systolic 71–155; BP diastolic 40–106
--- NOTE | 2019-07-26 | NUR ---
IT RISK ANALYST NOTE COMPLETED GOLYTELY ALL 4000 ML COMPLETED FROM [id number].
--- NOTE | 2019-07-26 01:30 | NUR ---
TUMBLER MACHINE OPERATOR NOTE HEPARIN HELD PER MINIBUS DRIVER ORDER TO HOLD 6 HOURS BEFORE 0730 EGD/ COLONOSCOPY. RN WILL CONTINUE TO MONITOR.
[2019-07-26] MEDS ORDERED: OCTREOTIDE 500 MCG/ML VIAL ONE (04:49)
[2019-07-26 05:09] LABS: CALCIUM, SERUM 7.9 mg/dL (8.5-10.1); CARBON DIOXIDE 24 mmol/L (21-32); CHLORIDE 114 mmol/L (98-107); CREATININE 0.4 mg/dL (0.6-1.3); GLUCOSE 60 mg/dL (74-106); SODIUM SERUM 145 mmol/L (136-145); UREA NITROGEN, BLOOD 37 mg/dL (7-18)
[2019-07-26] MEDS: BLOOD SUGAR DIAGNOSTIC 1 EACH STRIP IN SCH ×3 (05:49→17:09)
[2019-07-26] MEDS: CLINDAMYCIN 900 MG in IV D5W 50 ML IV SCH ×3 (05:49→22:37)
[2019-07-26] MEDS: DEXTROSE 50%-WATER 50 ML DISP.SYRIN IV PRN ×3 (06:08→17:09)
--- NOTE | 2019-07-26 06:10 | NUR ---
SERVICE GIRL NOTE BLOOD SUGAR CHECK WAS 52 RECHECKED AND WAS 43. D50 PUSHED PER PROTOCOL WILL EVALUATE AT 0638
--- NOTE | 2019-07-26 07:00 | NUR ---
ICU/RN AM SHIFT INITIAL NOTES RECEIVED PT ASLEEP IN BED, EASILY AROUSED, PT A/O X 1, ABLE TO MOUTH WORDS IN ARMENIAN. NO ACUTE DISTRESS OR GRIMACING NOTED. ON VENTILATOR WITH RATES SET PRESCRIBED, SATURATING @ 100%, RESPIRATIONS EVEN & UNLABORED, LUNG SOUNDS DIMINISHED, SUCTIONED FOR AIRWAY CLEARANCE. ON TELE WITH SINUS RHYTHM, HR 66. PT NOTED WITH GENERALIZED ANASARCA. PT WITH ON GOING IV INFUSION OF SANDOSTATIN @ 50MC/HR AND D5NS @ 125CC/HR, PICC LINE ON LEFT UPPER ARM PATENT WITH NO S/S OF INFECTION. GUERRA CATHETER INTACT WITH YELLOW URINE OUTPUT. PT PLACED ON NPO EXCEPT MEDS FOR SCHEDULED EGD/COLONOSCOPY @ 0730 AND BRONCHOSCOPY @ 1500. PT IS COMFORTABLE, SCHEDULED AM MEDS TO BE GIVEN. CL WITHIN REACHED, SAFETY MAINTAINED AND ISOLATION OBSERVED. ON GOING MONITORING.
[2019-07-26] MEDS: ACETYLCYSTEINE 10% SOLN 400 MG/4 ML VIAL NEB SCH ×2 (07:36→21:32)
[2019-07-26] MEDS: IV D5/ 0.9% NACL 1,000 ML IV PRN ×2 (09:04→23:59)
[2019-07-26] MEDS: POTASSIUM CL. PREMIX PERIPHER. 50 ML IV SCH ×6 (09:08→17:05)
[2019-07-26] MEDS: SUCRALFATE 1 G/10 ML UDC GT SCH ×4 (09:16→21:13)
[2019-07-26] MEDS: PANTOPRAZOLE 40 MG VIAL IV SCH ×2 (09:16→21:13)
[2019-07-26] MEDS: LACTOBACILLUS RHAMNOSUS GG 1 EACH CAP.SPRINK PO SCH ×2 (09:17→17:04)
[2019-07-26] MEDS: LEVOTHYROXINE SODIUM 25 MCG TABLET PO SCH (09:17)
[2019-07-26] MEDS: DAKINS QUARTER STRENGTH (0.125%) 480 ML BOTTLE TOP SCH (09:17)
[2019-07-26] MEDS: CLOTRIMAZOLE 1% 15 GM TUBE TP SCH ×2 (09:18→17:04)
[2019-07-26] MEDS: Z GUARD REMEDY 4 OZ OINT TP SCH ×2 (09:18→21:14)
[2019-07-26 10:25] LABS: ABG BASE EXCESS -1.8 mmol/L; ABG OXYGEN SATURATION 97.8 % (92.0-98.5); ABG PCO2 40.9 mmHg (35.0-45.0); ABG PH 7.374 (7.350-7.450); ABG PO2 133.9 mmHg (75.0-100.0); AaDO2 104.3 mmHg; COHb 0.5 % (0.5-1.5); MetHb 0.4 % (0.0-1.5); O2Hb 96.9 % (94.0-97.0); SITE, ABG Right Radial
--- NOTE | 2019-07-26 11:45 | NUR ---
ICU/RN ROUNDS - DR. SUMNER UPDATED PT'S CONDITION. PT SEEN & EXAMINED BY DR. SUMNER. CLARIFIED WITH MD REGARDING INFUSION OF HEPARIN, PER MD NO BOLUS, RE-START HEPARIN WITH PREVIOUS DOSE AND DRAW PTT SIX HOURS AFTER INFUSION STARTED, NOTED. CHARGE NURSE AND PHARMACY MADE AWARE. NO OTHER VERBAL ORDER RECEIVED.
[2019-07-26] MEDS ORDERED: LIDOCAINE 2% JEL 5 ML TUBE MC ONE (12:00)
--- NOTE | 2019-07-26 13:00 | NUR ---
ICU/RN POSTPONED - EGD/COLONOSCOPY PER OR STAFF EGD/COLONOSCOPY POSTPONED FOR TOMORROW.
[2019-07-26] MEDS ORDERED: ANESTHESIA TRAY IN PYXIS 1 EA TRAY MC ONE (13:36)
[2019-07-26] MEDS: SILVER SULFADIAZINE CREAM 25 GM TUBE TP SCH (14:48)
[2019-07-26] MEDS ORDERED: PROPOFOL 100 ML IV PRN (15:30)
--- NOTE | 2019-07-26 15:45 | NUR ---
RT BRONCH DONE BY DR JULIO. PATIENT TIA WELL.
--- NOTE | 2019-07-26 15:45 | NUR ---
ICU/RN BRONCHOSCOPY PT SEDATED, DR. JULIO WITH 2 RT AND CHARGE NURSE AT BEDSIDE ASSISTING FOR BRONCHOSCOPY PROCEDURE. ON GOING MONITORING.
[2019-07-26] MEDS: HEPARIN INFUSION/D5W 500 ML IV PRN (16:06)
--- NOTE | 2019-07-26 17:30 | NUR ---
ICU/RN AFTERNOON ROUNDS PM CARE PROVIDED. NOTED WITH LOW BLOOD GLUCOSE, PROTOCOL INITIATED. ON GOING MONITORING, WILL RE-CHECK.
--- NOTE | 2019-07-26 19:30 | NUR ---
ICU/RN AM SHIFT END NOTES LATEST BLOOD GLUCOSE 70. ALL NEEDS MET. PT ENDORSED TO PM NURSE TO CONTINUE CARE. CL WITHIN REACHED, SAFETY MAINTAINED AND ISOLATION OBSERVED.
[2019-07-26] MEDS: AMIKACIN 500 MG in IV D5W 100 ML IV SCH (21:03)
[2019-07-26] MEDS: INSULIN GLARGINE, 100 UNIT/ML CARTRIDGE SQ SCH (21:14)
[2019-07-27] VITALS (33 sets, daily range): BP systolic 75–174; BP diastolic 38–112
--- NOTE | 2019-07-27 | NUR ---
RECEIVED PATIENT ON THE VENTILATOR VIA TRACHEOSTOMY ,ON AC MODE,BREATHING REGULAR AND NON LABORED,NOT IN ANY DISTRESS,A LITTLE DROWSY BUT EASILY AROUSABLE, OPENS EYES , + COUGH,GAG.WITHDRAWS TO PAIN.ON HEPARIN DRIP(HELD AT 2300 PER PROTOCOL FOR PTT OF 97.7)RESUMED AT 500 UNITS /HR (DECREASED FROM 700 UNITS PER PROTOCOL. ON SANDOSTATIN DRIP . PICC LINE @ MATT (NOT BEING USED + DVT RIGHT ARM),PICC LINE @ FATOU. G TUBE CLAMPED(NPO FOR EGD/COLONOSCOPY IN AM). + GENERALIZED EDEMA. HEPARIN DRIP RESUMED NOW AT 500 UNITS/HR.
[2019-07-27] MEDS: HEPARIN INFUSION/D5W 500 ML IV PRN (00:02)
[2019-07-27] MEDS: BLOOD SUGAR DIAGNOSTIC 1 EACH STRIP IN SCH ×5 (00:23→23:16)
--- NOTE | 2019-07-27 02:00 | NUR ---
STABLE,AWAKE,ALERT.NO S/S OF ANY BLEEDING.
[2019-07-27] MEDS: OCTREOTIDE 1,250 MCG in IV NS 0.9% 247.5 ML IV PRN (02:28)
--- NOTE | 2019-07-27 03:30 | NUR ---
HEPARIN DRIP STOPPED (6 HOURS PRIOR TO SCHEDULED EGD/COLONOSCOPY@ 0930).
--- NOTE | 2019-07-27 04:00 | NUR ---
REMAINS STABLE,NO BLEEDING NOTED.AWAKE,ALERT.
[2019-07-27] MEDS: CLINDAMYCIN 900 MG in IV D5W 50 ML IV SCH ×3 (04:47→21:00)
[2019-07-27 05:13] LABS: CALCIUM, SERUM 7.8 mg/dL (8.5-10.1); CARBON DIOXIDE 25 mmol/L (21-32); CHLORIDE 112 mmol/L (98-107); CREATININE 0.5 mg/dL (0.6-1.3); GLUCOSE 234 mg/dL (74-106); POTASSIUM 3.6 mmol/L (3.5-5.1); SODIUM SERUM 143 mmol/L (136-145); UREA NITROGEN, BLOOD 32 mg/dL (7-18)
--- NOTE | 2019-07-27 06:00 | NUR ---
STATUS UNCHANGED,AWAKE,ALERT.NO BLEEDING NOTED.
[2019-07-27] MEDS: INSULIN REGULAR, HUMAN 100 UNIT/ML 3 ML VIAL SQ PRN ×3 (06:15→18:37)
--- NOTE | 2019-07-27 07:00 | NUR ---
REPORT GIVEN TO ELLIS TUTTLE.
[2019-07-27] MEDS: LEVOTHYROXINE SODIUM 25 MCG TABLET PO SCH (07:30)
[2019-07-27] MEDS: SUCRALFATE 1 G/10 ML UDC GT SCH ×4 (07:30→21:01)
--- NOTE | 2019-07-27 07:41 | NUR ---
VOIP TECHNICIAN NOTES RECEIVED BEDSIDE REPORT. PATIENT A/ O 1-2 INDONESIAN SPEAKING. NO SIGNS OR SYMPTOMS OF RESPIRATORY DISTRESS TOLERATING VENT SETTINGS ORDERED AC 12 VT 450 O2 40% PEEP 5. NO C/O PAIN. GT CLAMPED MEDS ONLY AWAITING FOR PROCEDURE THIS AM. FATOU PICC RUNNING IVF D5NS @ 125 ML/HR AND OCTREOTIDE @ 50 MCG. HEPARIN ON HOLD FOR PROCEDURE. GUERRA CATH DRAINING CLEAR YELLOW URINE. SAFETY PRECAUTIONS IN PLACE BED IN LOW ISMA POSITION.WILL CONT TO MONITOR ACCORDINGLY
[2019-07-27] MEDS: ACETYLCYSTEINE 10% SOLN 400 MG/4 ML VIAL NEB SCH ×2 (07:57→21:40)
[2019-07-27] MEDS: LACTOBACILLUS RHAMNOSUS GG 1 EACH CAP.SPRINK PO SCH ×2 (08:35→17:38)
[2019-07-27] MEDS: DAKINS QUARTER STRENGTH (0.125%) 480 ML BOTTLE TOP SCH (08:36)
[2019-07-27] MEDS: CLOTRIMAZOLE 1% 15 GM TUBE TP SCH ×2 (08:37→17:26)
[2019-07-27] MEDS: SILVER SULFADIAZINE CREAM 25 GM TUBE TP SCH (08:37)
[2019-07-27] MEDS: Z GUARD REMEDY 4 OZ OINT TP SCH ×2 (08:37→21:00)
[2019-07-27] MEDS: PANTOPRAZOLE 40 MG VIAL IV SCH ×2 (08:38→20:59)
[2019-07-27] MEDS: IV D5/ 0.9% NACL 1,000 ML IV PRN ×2 (08:39→17:22)
[2019-07-27 09:05] LABS: BASOPHILS % (AUTO) 0.2 % (0.0-2.0); EOSINOPHILS % (AUTO) 0.2 % (0.0-6.0); HEMATOCRIT 28 % (33-45); LYMPHOCYTES # (AUTO) 0.1 /CMM (0.8-4.8); LYMPHOCYTES % (AUTO) 2.6 % (20.0-44.0); MEAN CORPUSCULAR HGB CONC 32 g/dl (31.0-36.0); MEAN CORPUSCULAR VOLUME 98 fL (82-100); MONOCYTES # (AUTO) 0.2 /CMM (0.1-1.30); MONOCYTES % (AUTO) 5.3 % (2.0-12.0); NEUTROPHILS # (AUTO) 4.1 /CMM (1.8-8.9); NEUTROPHILS % (AUTO) 91.7 % (43.0-81.0); PLATELET COUNT (AUTO) 103 /CMM (150-450); WHITE BLOOD COUNT (AUTO) 4.5 K/uL (4.3-11.0)
[2019-07-27 09:29] LABS: BILIRUBIN,DIRECT 0.3 mg/dL (0.0-0.2); BILIRUBIN,TOTAL 0.6 mg/dL (0.2-1.0); MAGNESIUM 1.8 mg/dL (1.8-2.4); PHOSPHORUS 3.2 mg/dL (2.5-4.9)
[2019-07-27 09:32] LABS: ALBUMIN 1.2 g/dL (3.4-5.0)
--- NOTE | 2019-07-27 09:34 | NUR ---
MEDS NOT GIVEN PATIENT NPO SURGERY STATUS
--- NOTE | 2019-07-27 09:37 | NUR ---
GI TEAM HERE FOR EGD COLONOSCOPY AT BEDSIDE
--- NOTE | 2019-07-27 09:47 | NUR ---
CRITICAL LAB VALUE CALLED ALBUMIN 1.[address] SUMNER
[2019-07-27 09:50] LABS: BAND % (MANUAL) 1 % (0.0-5.0); LYMPHOCYTES % (MANUAL) 1 % (16-48); MONOCYTES % (MANUAL) 3 % (0-11.0); MYELOCYTES % 1 % (0-0); NEUTROPHILS % (MANUAL) 94 (42-76)
--- NOTE | 2019-07-27 10:15 | NUR ---
EGD COMPLETE AT BEDSIDE PATIENT CLEANED AND REPOSITIONED FOR COMFORT.
--- NOTE | 2019-07-27 10:55 | NUR ---
CALL TO DR SUMNER IN REGARDS TO HEPARIN DRIP LAST aPTT 43.7
--- NOTE | 2019-07-27 11:22 | NUR ---
SPOKE WITH PHARMACY HEIDI. PIERRE TO RESUME HEPARIN AT PREVIOUS DOSE AND HAVE aPTT DRAWN IN 6 HRS.
--- NOTE | 2019-07-27 12:30 | NUR ---
WOUND CARE DONE WITH HITESH LINES CHANGED ORAL CARE DONE. PATIENT WEEPING FROM ALL EXTREMITIES
[2019-07-27] MEDS ORDERED: LIDOCAINE 1%-EPI 1:100,000 50 ML VIAL IJ ONE (13:30)
[2019-07-27] MEDS ORDERED: GLUCERNA 1.2 1,000 ML BOTTLE NG PRN (17:00)
--- NOTE | 2019-07-27 19:22 | NUR ---
GTF STARTED AT 35 ML/HR ORDERED HEPARIN LEVELS DRAWN AND ADJUSTED PER PROTOCOL
--- NOTE | 2019-07-27 19:23 | NUR ---
REPORT ENDORSED TO NOC
--- NOTE | 2019-07-27 19:25 | NUR ---
MEDICAL RECORD CONSULTANT RCD PT W/DX SEPTIC SHOCK; PT IS ALERT ABLE TO MOUTH WORDS. NSR ON MONITOR. SHILEY 6 W/VENT SETTINGS AC 12 450 40% +5. PROVIDED ORAL CARE. GUERRA CATH DRAINING CLEAR YELLOW URINE. MATT PICC PER REPORT NOT TO BE REMOVED; DVT ON RIGHT ARM. FATOU PICC LINE D5NS @ 125 ML/HR AND HEPARIN DRIP AT 400 UNITS/HR W/PTT @ 0100. GLUCERNA 1.2 @ 35 ML/HR W/A GOAL RATE OF 75 ML/HR. NO RESIDUAL AT THIS TIME. CONTINUE TO MONITOR.
--- NOTE | 2019-07-27 20:00 | NUR ---
VEST TAILOREYELET RIVETER TREATMENT NOT DONE PER PREVIOUS SHIFT; APPLIED XEROFORM AND MEPILEX TO RIGHT BUTTOCKS AND APPLIED SILVADENE AND MEPILEX TO RIGHT LEG OPEN WOUNDS.
[2019-07-27] MEDS: AMIKACIN 500 MG in IV D5W 100 ML IV SCH (20:01)
--- NOTE | 2019-07-27 20:30 | NUR ---
TECHNICAL SPEC NOTED HEAD CT ORDERED FROM 07/26 NOT ENDORSED BY PREVIOUS SHIFT.
[2019-07-27] MEDS: INSULIN GLARGINE, 100 UNIT/ML CARTRIDGE SQ SCH (22:31)
[2019-07-28] VITALS (33 sets, daily range): BP systolic 90–158; BP diastolic 47–104
--- NOTE | 2019-07-28 02:10 | NUR ---
FORENSIC TECHNICIAN PT TAKEN FOR HEAD CT.
--- NOTE | 2019-07-28 03:00 | NUR ---
TRAM OPERATOR PTT 45.8 ROUNDED TO 46 PER HEPARIN PROTOCOL NO CHANGE AT THIS TIME; RECHECK PTT IN 6 HRS.
[2019-07-28] MEDS: IV D5/ 0.9% NACL 1,000 ML IV PRN ×2 (03:20→21:30)
[2019-07-28 04:17] LABS: CALCIUM, SERUM 7.9 mg/dL (8.5-10.1); CARBON DIOXIDE 26 mmol/L (21-32); CHLORIDE 114 mmol/L (98-107); CREATININE 0.4 mg/dL (0.6-1.3); GLUCOSE 94 mg/dL (74-106); POTASSIUM 2.9 mmol/L (3.5-5.1); SODIUM SERUM 144 mmol/L (136-145); UREA NITROGEN, BLOOD 29 mg/dL (7-18)
[2019-07-28] MEDS: CLINDAMYCIN 900 MG in IV D5W 50 ML IV SCH ×2 (04:50→12:58)
[2019-07-28] MEDS: HEPARIN INFUSION/D5W 500 ML IV PRN ×2 (04:51→23:12)
[2019-07-28] MEDS: BLOOD SUGAR DIAGNOSTIC 1 EACH STRIP IN SCH ×4 (06:02→23:29)
--- NOTE | 2019-07-28 07:00 | NUR ---
ASSISTANT BOILER OPERATOR AM NOTE PATIENT IN BED ALERT ORIENTED X2. TRACH, GTUBE FLUSHING WELL NO RESIDUAL. IV PATENT AND INTACT. FATOU PICC DO NOT USE DUE TO DVT PER MD ORDER. PTT REPEAT AT 0730. POTASSIUM LOW MD AWARE NEW ORDERS TO CARRY OUT. FC DRAINING WELL YELLOW URINE. GENERALIZED WHEEPING ALL EXTREMETIES. LEADS ON NSR ON MONITOR. NO PAIN VITALS WNL.
[2019-07-28] MEDS: ACETYLCYSTEINE 10% SOLN 400 MG/4 ML VIAL NEB SCH ×2 (08:02→21:38)
[2019-07-28] MEDS: LACTOBACILLUS RHAMNOSUS GG 1 EACH CAP.SPRINK PO SCH ×2 (08:23→16:55)
[2019-07-28] MEDS: SUCRALFATE 1 G/10 ML UDC GT SCH ×4 (08:23→21:52)
[2019-07-28] MEDS: LEVOTHYROXINE SODIUM 25 MCG TABLET PO SCH (08:23)
[2019-07-28] MEDS: POTASSIUM CHLORIDE 20 MEQ POWDER PACKET NG SCH ×4 (08:23→12:21)
[2019-07-28] MEDS: PANTOPRAZOLE 40 MG VIAL IV SCH ×2 (08:23→21:48)
[2019-07-28] MEDS: SILVER SULFADIAZINE CREAM 25 GM TUBE TP SCH (08:24)
[2019-07-28] MEDS: Z GUARD REMEDY 4 OZ OINT TP SCH ×2 (08:24→21:51)
[2019-07-28] MEDS: DAKINS QUARTER STRENGTH (0.125%) 480 ML BOTTLE TOP SCH (08:25)
[2019-07-28] MEDS: CLOTRIMAZOLE 1% 15 GM TUBE TP SCH ×2 (08:26→16:56)
[2019-07-28] MEDS ORDERED: IV D5/0.45 NACL 1,000 ML IV ONE ×2 (09:00→10:30)
--- NOTE | 2019-07-28 09:30 | NUR ---
QA REVIEWER NOTE NEW ORDERS FOR US GUIDED THORACENTESIS CONSENT IN CHART AND SIGNED. SUPPLIES AT BEDSIDE. HEPARIN STOPPED AT 0930 PER PELEG, PROCEDURE MAY BE DONE 4 HRS AFTER HEPARIN STOP 1330. DO NOT USE MATT PICCLINE DUE TO DVT . SEND TO LAB FOR CYTOLOGY AFTER FLUID COLLECTED PER MD ORDER. IVF CHANGED TO TKO AT 10ML/HR. DISCONTINUE LONG ACTING INSULIN PER MD. CONTINUE MONITORING GLUCOSE.
[2019-07-28] MEDS ORDERED: IV D5/ 0.9% NACL 1,000 ML IV ONE (10:30)
[2019-07-28] MEDS: DEXTROSE 50%-WATER 50 ML DISP.SYRIN IV PRN ×3 (12:17→22:45)
--- NOTE | 2019-07-28 16:18 | NUR ---
pt is resting in the bed, alert, follows simple commands, SR, on the vent, lungs congested, anasarca, s/p thoracentesis 800cc out no bleeding at the incision site, on heparin drip at 400unit/hr, GT to feeding tolerates well, f/c OK output, v/s stable, no pain, pt cleaned, changed and repositioned q2hrs.
--- NOTE | 2019-07-28 17:34 | NUR ---
BS 29, Dr Simpson notified. D50 given.
[2019-07-28] MEDS: ALBUTEROL FS 2.5 MG/3 ML VIAL.NEB NEB PRN (21:38)
[2019-07-28] MEDS: COLISTIMETHATE SODIUM 150 MG VIAL NEB SCH (22:05)
[2019-07-29] VITALS (13 sets, daily range): BP systolic 77–148; BP diastolic 52–98
[2019-07-29 04:18] LABS: CALCIUM, SERUM 7.8 mg/dL (8.5-10.1); CARBON DIOXIDE 27 mmol/L (21-32); CHLORIDE 115 mmol/L (98-107); CREATININE 0.4 mg/dL (0.6-1.3); GLUCOSE 96 mg/dL (74-106); POTASSIUM 3.8 mmol/L (3.5-5.1); SODIUM SERUM 145 mmol/L (136-145); UREA NITROGEN, BLOOD 30 mg/dL (7-18)
[2019-07-29] MEDS: BLOOD SUGAR DIAGNOSTIC 1 EACH STRIP IN SCH ×3 (06:47→18:04)
[2019-07-29] MEDS: INSULIN REGULAR, HUMAN 100 UNIT/ML 3 ML VIAL SQ PRN ×2 (06:48→12:10)
--- NOTE | 2019-07-29 07:22 | NUR ---
RN NOTES IN BED, RESTING COMFORTABLY. NO APPARENT DISTRESS. BREATHING EVEN AND UNLABORED. VENT SETTING WELL TOLERATED. SUNCTIONED MODERATE AMOUNT OF SEMI LOOSE YELLOWISH SECRETION. ALERT TO SELF. NO PHYSICAL MANIFESTATION OF PAIN OR DISCOMFORT. 0000 BLOOD SUGAR LEVEL WAS 29, DEXTROSE ADMINISTERED. ASYMPTOMATIC. WENT UP TO 95 AFTER AN HOUR. D5 NS AT 100MLS/HR TOLERATING WELL. MD MADE AWARE. NO NEW ORDER OF THIS TIME. PATIENT'S BLOOD SUGAR LEVEL AT 0600 WAS 95. VITAL SIGNS WITHIN NORMAL LIMIT. KEPT CLEAN AND COMFORTABLE. ENDORSED TO AM SHIFT FOR CONTINUITY OF CARE.
[2019-07-29] MEDS: IV D5/ 0.9% NACL 1,000 ML IV PRN ×2 (07:37→20:19)
[2019-07-29] MEDS: LACTOBACILLUS RHAMNOSUS GG 1 EACH CAP.SPRINK PO SCH ×2 (08:04→16:29)
[2019-07-29] MEDS: SUCRALFATE 1 G/10 ML UDC GT SCH ×4 (08:04→22:14)
[2019-07-29] MEDS: PANTOPRAZOLE 40 MG VIAL IV SCH ×2 (08:04→20:13)
[2019-07-29] MEDS: AMIKACIN 500 MG in IV D5W 100 ML IV SCH (08:04)
[2019-07-29] MEDS: LEVOTHYROXINE SODIUM 25 MCG TABLET PO SCH (08:04)
[2019-07-29] MEDS: CLOTRIMAZOLE 1% 15 GM TUBE TP SCH ×2 (08:05→16:31)
[2019-07-29] MEDS: ACETYLCYSTEINE 10% SOLN 400 MG/4 ML VIAL NEB SCH ×2 (08:05→21:25)
[2019-07-29] MEDS: DAKINS QUARTER STRENGTH (0.125%) 480 ML BOTTLE TOP SCH (08:05)
[2019-07-29] MEDS: Z GUARD REMEDY 4 OZ OINT TP SCH ×2 (08:05→23:05)
[2019-07-29] MEDS: SILVER SULFADIAZINE CREAM 25 GM TUBE TP SCH (08:06)
--- NOTE | 2019-07-29 09:14 | NUR ---
received pt from retail shift supervisor, alert, follows simple commands at times, SR, off of heparin gtt, on the vent, lungs congested, anasarca, GT to feeding tolerates well, f/c good output, v/s stable, no pain, pt turned and repositioned.
[2019-07-29] MEDS: DABIGATRAN ETEXILATE MESYLATE 150 MG CAPSULE PO SCH ×2 (09:35→16:31)
[2019-07-29] MEDS: COLISTIMETHATE SODIUM 150 MG VIAL NEB SCH ×2 (09:46→23:15)
--- NOTE | 2019-07-29 11:44 | NUR ---
pt transferred to ANA, ACLS followed, v/s stable, no pain.
--- NOTE | 2019-07-29 11:45 | NUR ---
HELPER MARBLE FINISHER NOTE RECEIVED PATIENT FROM ICU. ANA STATUS. ON VENT, SATING WELL AT 97% ALERT AND ORIENTED X1. MOUTHS WORDS. UNDERSTANDS KOREAN. ON TELE MONITOR, SR. ON GTF GLUCERNA AT 70 ML/HR. HAS A LEFT UA PICC WITH D5NS AT 100 ML/HR. PER ICU NURSE, PATIENT HAD A HYPOGLYCEMIC EPISODE YESTERDAY, BS WENT ALL THE WAY DOWN TO 19. WAS GIVEN D10 AND ON D5NS IVF. WILL CONTINUE TO MONITOR BS. HAD A THORACENTESIS DONE YESTERDAY WELL, 800 ML OUT. HEPARIN DRIP STOPPED PER MD AT 0720. HAS A GUERRA CATH, HAS CLEAR AND YELLOW URINE. BED LOCKED AND IN LOW POSITION. CALL LIGHT WITHIN REACH. WILL CONTINUE TO MONITOR CLOSELY
[2019-07-29] MEDS: ACETAMINOPHEN 650 MG/20.3 ML UDC GT PRN (15:08)
--- NOTE | 2019-07-29 18:08 | NUR ---
RT NOTE PT REMAINS MECHANICALLY VENTILATED VIA CUFFED TRACHEOSTOMY TUBE. CUFF INFLATED. TRACH TUBE MIDLINE AND SECURE. VENTILATOR SETTINGS PRESCRIBED. ALARMS SET PER PROTOCOL AND AUDIBLE. VENT PLUGGED IN TO RED OUTLET. AMBU BAG AT BED SIDE. NO DISTRESS NOTED. Addendum: 07/29/19 at 1810 by SHANNA PALOMINO RT Amended: Links added.
--- NOTE | 2019-07-29 18:48 | NUR ---
RN CLOSING NOTE PATIENT IN BED AWAKE. ON VENT, SATING WELL 100%. ON TELE MONITOR, SR. HAS GUERRA CATH WITH 350ML OUTPUT. DEBRIDEMENT OF SACRAL DONE. HAS A LEFT PICC WITH D5NS AT 100 ML/HR. CLARKE PER MD. ALL MEDS GIVEN, ALL NEEDS MET. REPOSITIONED PER PROTOCOL. BED LOCKED AND IN LOWEST POSITION. WILL ENDORSE TO NOC SHIFT FOR CLARKE
--- NOTE | 2019-07-29 20:00 | NUR ---
dayanara rn notes pts in bed awake and responsive , pts remains in bed remains on ventilator dependent ,ac setting well tolerated , suction secretion done prn , hob elevated for aspiration precaution, v/s stable afebrile , no sob no distress noted breathing even and unlabored , due meds given as ordered . turned and reposition q 2 hrs and prn.pts on sr on the monitor . sating 97%,all needs attended too call light within reach, kept pts clean dry and comfortable.pts on gt feeding well tolerated no residual noted.will continue to monitor pts.
[2019-07-30] VITALS: BP 118/98
--- NOTE | 2019-07-30 | NUR ---
dayanara rn notes blood sugar at 12mn is 195 mg/dl 3 units of regular insulin given per sliding scale.will check blood sugar again in am.
[2019-07-30] MEDS: BLOOD SUGAR DIAGNOSTIC 1 EACH STRIP IN SCH ×5 (00:53→23:32)
[2019-07-30] MEDS: INSULIN REGULAR, HUMAN 100 UNIT/ML 3 ML VIAL SQ PRN ×3 (00:55→23:29)
[2019-07-30 04:00] VITALS: BP 130/61
--- NOTE | 2019-07-30 06:44 | NUR ---
dayanara rn notes pts in bed remains on vent ac setting well tolerated , no sob no distress noted , v/s astable afebrile , f/c intact and patent , pts on gt feeding well tolerated no residual noted.blood sugar for 6am is 170 mg/dl 3 units of regular insulin given per sliding scale. will endorse to rn day shift for continuity of care.
--- NOTE | 2019-07-30 07:30 | NUR ---
ANA RN NOTES RECEIVED PT IN BED, HOB ELEVATED 30 DEG. ON VENT; SETTINGS MD ORDERED. TOLERATING WELL WITH NO S/SX OF RESP DISTRESS. PICC LINE IN PLACE; FLUSHED AND PATENT. TUBE FEEDING RUNNING AT 70CC/HR; NO RESIDUAL AND PATENT. PT IS ABLE TO NOD/ MOUTH WORDS A/OX1. FC DRAINING YELLOW URINE. SAFETY MEASURES IN PLACE. WILL CONT TO MONITOR.
[2019-07-30 08:00] VITALS: BP 110/66
[2019-07-30] MEDS: LACTOBACILLUS RHAMNOSUS GG 1 EACH CAP.SPRINK PO SCH ×2 (08:54→18:09)
[2019-07-30] MEDS: SUCRALFATE 1 G/10 ML UDC GT SCH ×4 (08:54→21:09)
[2019-07-30] MEDS: PANTOPRAZOLE 40 MG VIAL IV SCH ×2 (08:54→21:08)
[2019-07-30] MEDS: LEVOTHYROXINE SODIUM 25 MCG TABLET PO SCH (08:54)
[2019-07-30] MEDS: DABIGATRAN ETEXILATE MESYLATE 150 MG CAPSULE PO SCH ×2 (08:56→18:09)
[2019-07-30] MEDS: ALBUTEROL FS 2.5 MG/3 ML VIAL.NEB NEB PRN ×2 (09:13→20:10)
[2019-07-30] MEDS: ACETYLCYSTEINE 10% SOLN 400 MG/4 ML VIAL NEB SCH ×2 (09:13→20:10)
[2019-07-30] MEDS: COLISTIMETHATE SODIUM 150 MG VIAL NEB SCH ×2 (09:14→20:17)
[2019-07-30] MEDS: CLOTRIMAZOLE 1% 15 GM TUBE TP SCH ×2 (09:21→18:12)
[2019-07-30] MEDS: SILVER SULFADIAZINE CREAM 25 GM TUBE TP SCH (09:22)
[2019-07-30] MEDS: DAKINS QUARTER STRENGTH (0.125%) 480 ML BOTTLE TOP SCH (09:22)
[2019-07-30] MEDS: Z GUARD REMEDY 4 OZ OINT TP SCH ×2 (09:22→21:09)
--- NOTE | 2019-07-30 10:10 | NUR ---
telehealth director notes per charge nurse, lidia to dc daily abg on pt as pt on tele per protocol
[2019-07-30 12:00] VITALS: BP 144/72
[2019-07-30] MEDS: PROSOURCE / PROSTAT (PYXIS) 30 ML UDC GT SCH ×2 (12:12→18:09)
[2019-07-30 16:00] VITALS: BP 128/58
--- NOTE | 2019-07-30 16:39 | NUR ---
PT. RECEIVED ON TRACH ON MECHANICAL VENT WITH NOTED SETTINGS. TRACH IS PATENT AND SECURED. ALARMS ARE SET AND AUDIBLE AND VENT IS PLUGGED TO RED OUTLET. BVM IS AT BEDSIDE. PT. HAS EQUAL CHEST RISE WITH CLEAR AND COARSE BILATERAL BREATH SOUNDS. SX. SMALL AMOUNT OF THIN WHITE SECRETIONS T/O THE DAY. NO SOB NOTED. WILL PASS REPORT TO ASSESSMENT RN. Addendum: 07/30/19 at 1643 by TARI WHITLEY RT Amended: Links added.
[2019-07-30] MEDS: ACETAMINOPHEN 650 MG/20.3 ML UDC GT PRN (18:10)
[2019-07-30] MEDS: GLUCERNA 1.2 1,000 ML BOTTLE NG PRN (18:37)
--- NOTE | 2019-07-30 18:50 | NUR ---
outbound telemarketing representative end of shift notes pt in bed, asleep but easily arousable. on tele sr. trach to vent; settings tolerated as per md order. f/c in place draining yellow urine. vss. safety measures in place. endorsed to pm nurse for francesco.
[2019-07-30 20:00] VITALS: BP 140/66
--- NOTE | 2019-07-30 20:00 | NUR ---
outbound telemarketer notes pts in bed awake alert and responsive , v/s stable afebrile , on sr on monitor no sob no distress noted , sating 98% pts remains on vent dependent ,ac setting well tolerated , suction secretion done q2hrs and prn. hob elevated at all times for aspiration all needs attended too call light within reach , pts noted with generalized edema ,with left ua piccline intact and patent with gt feeding ogf glucerna 1.2 at 60cc/hr no residual noted feeding well tolerated . turned and reposition q2hrs for wound mgt , all due meds given as ordered , kept pts clean dry and comfortable. will continue to monitor.
[2019-07-30] MEDS: AMIKACIN 500 MG in IV D5W 100 ML IV SCH (22:50)
[2019-07-31] VITALS: BP 157/56
--- NOTE | 2019-07-31 | NUR ---
telephone coin box collector notes blood sugar for 12mn is 163mg/dl =3 units of regular insulin given per sliding scale , pts on gt feeding .
[2019-07-31] MEDS: COLISTIMETHATE SODIUM 150 MG VIAL NEB SCH ×3 (01:48→21:44)
[2019-07-31 04:00] VITALS: BP 153/51
--- NOTE | 2019-07-31 05:39 | NUR ---
PATIENT RECEIVED ON TRACH TO VENT WITH SETTINGS OF AC 12, 450 VT, 40%, +5. SUCTIONED WITH LAVAGE FOR MINIMAL, THIN, YELLOW SECRETIONS. GIVEN IN-LINE TREATMENTS WITH NO ADVERSE REACTIONS. AMBU BAG AT BEDSIDE. VENT AND PULSE OXIMETER ALARMS AUDIBLE AND VISIBLE. VENT PLUGGED INTO RED OUTLET. Addendum: 07/31/19 at 0540 by TERRI GERARDO RT Amended: Links added.
[2019-07-31] MEDS: BLOOD SUGAR DIAGNOSTIC 1 EACH STRIP IN SCH ×4 (05:42→23:59)
[2019-07-31] MEDS: INSULIN REGULAR, HUMAN 100 UNIT/ML 3 ML VIAL SQ PRN ×3 (05:43→23:58)
--- NOTE | 2019-07-31 05:44 | NUR ---
telegraph equipment maintainer notes blood sugar for 6am is 127mg/dl no coverage given per sliding scale.pts continue on gt feeding.
[2019-07-31 06:50] LABS: BASOPHILS % (AUTO) 0.2 % (0.0-2.0); EOSINOPHILS % (AUTO) 0.1 % (0.0-6.0); HEMATOCRIT 29 % (33-45); HEMOGLOBIN 9.3 g/dL (11.5-14.8); LYMPHOCYTES # (AUTO) 0.3 /CMM (0.8-4.8); LYMPHOCYTES % (AUTO) 2.9 % (20.0-44.0); MEAN CORPUSCULAR HGB CONC 32 g/dl (31.0-36.0); MEAN CORPUSCULAR VOLUME 97 fL (82-100); MONOCYTES # (AUTO) 0.3 /CMM (0.1-1.30); MONOCYTES % (AUTO) 2.9 % (2.0-12.0); NEUTROPHILS # (AUTO) 10.1 /CMM (1.8-8.9); NEUTROPHILS % (AUTO) 93.9 % (43.0-81.0); PLATELET COUNT (AUTO) 66 /CMM (150-450); RED BLOOD CELL COUNT(AUTO) 2.98 MIL/uL (4.0-5.2); WHITE BLOOD COUNT (AUTO) 10.8 K/uL (4.3-11.0)
[2019-07-31 07:10] LABS: CALCIUM, SERUM 8.4 mg/dL (8.5-10.1); CARBON DIOXIDE 24 mmol/L (21-32); CHLORIDE 115 mmol/L (98-107); CREATININE 0.6 mg/dL (0.6-1.3); GLUCOSE 134 mg/dL (74-106); POTASSIUM 3.9 mmol/L (3.5-5.1); SODIUM SERUM 147 mmol/L (136-145); UREA NITROGEN, BLOOD 46 mg/dL (7-18)
--- NOTE | 2019-07-31 07:15 | NUR ---
NATURAL FABRICATOR NOTES PT IN BED A/OX1 NON-VERBAL AND AWAKE. NO SOB AND DISCOMFORT NOTED AT THIS TIME. PT IS ON GLUCERNA @60ML/H TOLERATING WELL WITH NO RESIDUAL. LEFT UPPER ARM PICC LINE DRESSING CHANGED. ORDERED X RAY FOR PICC LINE PLACEMENT.WELL FLUSHED AND BLOOD RETURN OBSERVED. BED AT THE LOWEST POSITION LOCKED AND CALL LIGHT WITHIN REACH.
[2019-07-31 08:00] VITALS: BP_SYST 134; BP_SYST 182; BP_DIAS 69
[2019-07-31] MEDS: SUCRALFATE 1 G/10 ML UDC GT SCH ×4 (08:50→21:17)
[2019-07-31] MEDS: LEVOTHYROXINE SODIUM 25 MCG TABLET PO SCH (08:52)
[2019-07-31] MEDS: LACTOBACILLUS RHAMNOSUS GG 1 EACH CAP.SPRINK PO SCH ×2 (08:54→17:14)
[2019-07-31] MEDS: PANTOPRAZOLE 40 MG VIAL IV SCH ×2 (08:56→21:19)
[2019-07-31] MEDS: DABIGATRAN ETEXILATE MESYLATE 150 MG CAPSULE PO SCH ×2 (09:00→17:00)
[2019-07-31] MEDS ORDERED: PROSOURCE / PROSTAT (PYXIS) 30 ML UDC GT SCH (09:00)
[2019-07-31] MEDS: ALBUTEROL FS 2.5 MG/3 ML VIAL.NEB NEB PRN (09:08)
[2019-07-31] MEDS: ACETYLCYSTEINE 10% SOLN 400 MG/4 ML VIAL NEB SCH ×2 (09:08→21:44)
[2019-07-31] MEDS: DAKINS QUARTER STRENGTH (0.125%) 480 ML BOTTLE TOP SCH (09:10)
[2019-07-31] MEDS: Z GUARD REMEDY 4 OZ OINT TP SCH ×2 (09:10→21:18)
[2019-07-31] MEDS: CLOTRIMAZOLE 1% 15 GM TUBE TP SCH ×2 (09:10→17:15)
[2019-07-31] MEDS: SILVER SULFADIAZINE CREAM 25 GM TUBE TP SCH (09:11)
--- NOTE | 2019-07-31 10:23 | NUR ---
SHOP WORKER NOTE HELD PRADAXA DUE TO LOW PLATELETS OF [address] OVERTON AND MD ORDERED TO HOLD THE DOSE FOR TODAY.
[2019-07-31] MEDS: PROSOURCE / PROSTAT (PYXIS) 30 ML UDC GT SCH ×3 (10:31→17:14)
[2019-07-31 12:00] VITALS: BP 119/60
[2019-07-31] MEDS: ACETAMINOPHEN 650 MG/20.3 ML UDC GT PRN (15:28)
[2019-07-31 16:00] VITALS: BP 116/73
[2019-07-31] MEDS: GLUCERNA 1.2 1,000 ML BOTTLE NG PRN (16:07)
--- NOTE | 2019-07-31 19:42 | NUR ---
SKATE SHOP ATTENDANT NOTES CLOSING PT IN BED COMFORTABLE NO LABORED BREATHING NOTED. ALL NEEDS ATTENDED. SAFETY MEASURES IMPLEMENTED CALL LIGHT WITHIN REACH, BED LOCKED AT THE LOWEST POSITION. ENDORSED TO PRODUCTION ENGINEER NURSE FOR CLARKE.
[2019-07-31 20:00] VITALS: BP 134/63
--- NOTE | 2019-07-31 21:05 | NUR ---
RT NOTE PT RECEIVED TRACH ON MECHANICAL VENTILATION. PT IS AWAKE. AMBU BAG/BACK UP TRACH @ BEDSIDE. SX DONE, TRACH SECURED AND PATENT. ALARMS ON AND AUDIBLE. VENT PLUGGED TO RED OUTLET. CONT. POX CONNECTED. WILL MONITOR T/O SHIFT. Addendum: 07/31/19 at 2152 by CARLOS HENDRIX RT Amended: Links added.
[2019-08-01] VITALS: BP 139/56
[2019-08-01 04:00] VITALS: BP 136/83
[2019-08-01] MEDS: BLOOD SUGAR DIAGNOSTIC 1 EACH STRIP IN SCH ×3 (06:06→18:49)
[2019-08-01 06:44] LABS: BASOPHILS % (AUTO) 0.1 % (0.0-2.0); HEMATOCRIT 32 % (33-45); HEMOGLOBIN 10.1 g/dL (11.5-14.8); LYMPHOCYTES # (AUTO) 0.6 /CMM (0.8-4.8); LYMPHOCYTES % (AUTO) 3.1 % (20.0-44.0); MEAN CORPUSCULAR HGB CONC 32 g/dl (31.0-36.0); MEAN CORPUSCULAR VOLUME 97 fL (82-100); MONOCYTES # (AUTO) 0.5 /CMM (0.1-1.30); MONOCYTES % (AUTO) 2.7 % (2.0-12.0); NEUTROPHILS % (AUTO) 94.1 % (43.0-81.0); PLATELET COUNT (AUTO) 66 /CMM (150-450); RED BLOOD CELL COUNT(AUTO) 3.28 MIL/uL (4.0-5.2)
[2019-08-01] MEDS: SUCRALFATE 1 G/10 ML UDC GT SCH ×3 (06:55→16:34)
[2019-08-01] MEDS: LEVOTHYROXINE SODIUM 25 MCG TABLET PO SCH (06:55)
[2019-08-01 06:58] LABS: BILIRUBIN,TOTAL 0.5 mg/dL (0.2-1.0); CALCIUM, SERUM 8.7 mg/dL (8.5-10.1); CREATININE 0.7 mg/dL (0.6-1.3); POTASSIUM 3.6 mmol/L (3.5-5.1)
--- NOTE | 2019-08-01 07:20 | NUR ---
RN NOTE: RECEIVED PATIENT ASLEEP IN BED, EASILY AROUSED WITH TACTILE STIMULI, A/O X 1, UNDERSTOOD MOSTLY BURUNDIAN SPEAKING AND A BURUNDIAN SPEAKING INTERNATIONAL SOURCING MANAGER WAS ASSIGNED WITH THE PATIENT. NO ACUTE DISTRESS OR FACIAL GRIMACING NOTED. ON MECHANICAL VENTILATOR SATURATING 100% WITH CURRENT VENT SETTINGS. RESPIRATION EVEN & UNLABORED, AND NOT ON ANY FORM OF DISTRESS. SUCTIONED FOR AIRWAY CLEARANCE. ON YARDAGE ESTIMATOR WITH SINUS RHYTHM HR 80. PT NOTED WITH GENERALIZED EDEMA. LEFT UPPER ARM PICC LINE PATENT WITH NO S/S OF INFECTION AND WITH TRANSPARENT DRESSING. GURERA CATHETER INTACT WITH YELLOW URINE DRAINING TO GRAVITY. ON CONTACT ISOLATION FOR CRE SPUTUM AND ACINETOBACTER WOUND. PT IS COMFORTABLE, SCHEDULED AM MEDS TO BE GIVEN. CALL LIGHT PLACED WITHIN REACHED. NEEDS ANTICIPATED.
[2019-08-01 07:32] LABS: ALBUMIN 1.2 g/dL (3.4-5.0)
[2019-08-01 08:00] VITALS: BP 116/72
[2019-08-01 08:20] LABS: BAND % (MANUAL) 5 % (0.0-5.0); LYMPHOCYTES % (MANUAL) 2 % (16-48); MONOCYTES % (MANUAL) 4 % (0-11.0); NEUTROPHILS % (MANUAL) 89 (42-76)
[2019-08-01] MEDS ORDERED: SILVER NITRATE APPLICATOR 1 EA BOX TP SCH (08:30)
[2019-08-01] MEDS ORDERED: LIDOCAINE 1%-EPI 1:100,000 20 ML VIAL TP ONE (08:30)
[2019-08-01] MEDS: PROSOURCE / PROSTAT (PYXIS) 30 ML UDC GT SCH ×3 (08:33→16:20)
[2019-08-01] MEDS: PANTOPRAZOLE 40 MG VIAL IV SCH (08:33)
[2019-08-01] MEDS: COLISTIMETHATE SODIUM 150 MG VIAL NEB SCH ×2 (08:34→09:27)
[2019-08-01] MEDS: LACTOBACILLUS RHAMNOSUS GG 1 EACH CAP.SPRINK PO SCH ×2 (08:35→16:20)
[2019-08-01] MEDS: DAKINS QUARTER STRENGTH (0.125%) 480 ML BOTTLE TOP SCH (08:37)
[2019-08-01] MEDS: Z GUARD REMEDY 4 OZ OINT TP SCH (08:38)
[2019-08-01] MEDS: CLOTRIMAZOLE 1% 15 GM TUBE TP SCH ×2 (08:39→16:23)
[2019-08-01] MEDS: SILVER SULFADIAZINE CREAM 25 GM TUBE TP SCH (08:39)
--- NOTE | 2019-08-01 09:00 | NUR ---
RN NOTE: PAGED DR. SUMNER REGARDING THE PATIENT'S PRADAXA GIVEN THE PLATELET COUNT 66 AND HGB 10.1 AWAITING FOR MD'S RESPONSE.
[2019-08-01] MEDS: ACETYLCYSTEINE 10% SOLN 400 MG/4 ML VIAL NEB SCH (09:12)
[2019-08-01] MEDS: ALBUTEROL FS 2.5 MG/3 ML VIAL.NEB NEB PRN (09:12)
[2019-08-01] MEDS: DABIGATRAN ETEXILATE MESYLATE 150 MG CAPSULE PO SCH ×2 (10:11→16:22)
--- NOTE | 2019-08-01 10:11 | NUR ---
RN NOTE: DR. SUMNER RESPONDED AND WAS OK TO ADMINISTER THE PRADAXA DUE TO THE PATIENT'S DVT. WILL MONITOR FOR ANY BLEEDING.
--- NOTE | 2019-08-01 11:00 | NUR ---
RN NOTE: BEDSIDE SACRAL WOUND DEBRIDEMENT WAS DONE BY HENNY MORENO AND PATIENT'S SACRUM S/P DEBRIDEMENT WAS UNABLE TO TAKE PICTURE DUE TO THE NEED FOR STAT PACKING AFTER DEBRIDEMENT.
[2019-08-01 12:00] VITALS: BP 102/47
[2019-08-01] MEDS: GLUCERNA 1.2 1,000 ML BOTTLE NG PRN (12:12)
[2019-08-01] MEDS ORDERED: DEXTROSE 50%-WATER 50 ML DISP.SYRIN IV PRN (12:30)
[2019-08-01] MEDS ORDERED: INSULIN REGULAR, HUMAN 100 UNIT/ML 3 ML VIAL SQ PRN (12:30)
[2019-08-01 16:00] VITALS: BP 100/53
--- NOTE | 2019-08-01 17:00 | NUR ---
RN NOTE: PATIENT'S GT FEEDING WAS HELD DUE TO A GASTRIC RESIDUAL OF 210. DR. SUMNER WAS INFORMED AND OK TO HOLD GT FEEDING. ASKED MD FOR ANY ORDER, NO FURTHER ORDER AT THIS TIME. WILL CONTINUE TO MONITOR THE PATIENT.
--- NOTE | 2019-08-01 17:10 | NUR ---
RN NOTE: UNABLE TO INSERT A FLEXISEAL FOR SKIN MANAGEMENT AND TO PREVENT CONTAMINATION OF THE BOWEL MOVEMENT BECAUSE PATIENT WAS NOTED WITH BRIGHT RED BLOOD FROM THE RECTAL AREA.
--- NOTE | 2019-08-01 18:11 | NUR ---
RN NOTE: Shwetha PORTER NP FOR ID WAS IN THE UNIT AND INFORMED HER THAT THE PATIENT HAD AN EPISODE OF HEMATURIA ON THE GUERRA CATHETER AND PATIENT WAS NOTED WITH BRIGHT RED BLOOD COMING FROM THE RECTAL AREA. STAT H/H WAS ORDERED PER LOU SARMIENTO.
[2019-08-01] MEDS ORDERED: METOCLOPRAMIDE HCL 10 MG/2 ML VIAL IV PRN ×2 (19:00)
[2019-08-01] MEDS ORDERED: COLISTIMETHATE SODIUM 100 MG in IV NS 0.9% 50 ML IV SCH (19:00)
[2019-08-01] MEDS ORDERED: METOCLOPRAMIDE HCL 10 MG/2 ML VIAL IV SCH (19:00)
[2019-08-01] MEDS ORDERED: ONDANSETRON HCL/PF 4 MG/2 ML VIAL IV PRN (19:00)
[2019-08-01 19:08] LABS: HEMOGLOBIN 10.2 g/dL (11.5-14.8)
--- NOTE | 2019-08-01 19:10 | NUR ---
RN NOTE: BEDSIDE REPORT WAS GIVEN TO PM SHIFT NURSE FOR CONTINUITY OF CARE. EMPHASIZED THAT THE PATIENT HAS AN EPISODE OF VOMITING TODAY AND A DOSE OF ZOFRAN WAS GIVEN. GT FEEDING REMAINED ON HELD AT THIS TIME.
[2019-08-01] MEDS ORDERED: FEE EMEERGENCY 1 MIN EA MC ONE (19:20)
[2019-08-01] MEDS ORDERED: ATROPINE SULFATE 1 MG/10 ML DISP.SYRIN ONE (19:20)
[2019-08-01] MEDS ORDERED: EPINEPHRINE (1:10,000) SYRINGE 1 MG/10 ML DISP.SYRIN ONE (19:20)
--- NOTE | 2019-08-01 19:20 | NUR ---
SENIOR C DEVELOPER NOTES ACCOUNT LIAISON SHOWED HR DROPPING DOWN TO 31 BPM. NAIL PULLER CALLED. PATIENT HAD FAINT PULSE AT FIRST, BUT THEN WENT INTO ASYSTOLE SHORTLY AFTER. CPR STARTED AND RACHEL JOHNSTON CALLED. SEE RACHEL JOHNSTON FORM
[2019-08-01] MEDS ORDERED: AMIKACIN 500 MG in IV D5W 100 ML IV SCH (20:00)
--- NOTE | 2019-08-01 21:00 | NUR ---
RN NOTES PATIENT'S SON SHANNA AT BEDSIDE. ALL PERTINENT INFORMATION GIVEN, CONSENT OBTAINED TO RELEASE REMAINS. NO MORTUARY AT THIS TIME. SHANNA DENIES NEED FOR ANY EXTRA INFORMATION. SHANNA INSTRUCTED TO CALL SO SOON MORTUARY ARRANGEMENT ORGANIZED
--- NOTE | 2019-08-01 23:00 | NUR ---
RN NOTES PATIENT ENDORSED TO NURSE WHITAKER TO TRANSFER REMAINS TO [facility]
== END 2019-08-01 19:35 | disposition expired | DRG 710 ==
LOC: ER 08:10 → ICU 11:06 → TELE-TD 07-29 11:25 → TELE1 07-30 10:07
PROVIDERS: ADMIT Legal Medicine; ATTEND Legal Medicine
PROC: 5A1955Z Respiratory Ventilation, Greater than 96 Consecutive Hours (ICD-10-PCS; 2019-07-22)
PROC: 02H633Z Insertion of Infusion Device into Right Atrium, Percutaneous Approach (ICD-10-PCS; 2019-07-22)
PROC: B548ZZA Ultrasonography of Superior Vena Cava, Guidance (ICD-10-PCS; 2019-07-22)
PROC: 30233P1 Transfusion of Nonautologous Frozen Red Cells into Peripheral Vein, Percutaneous Approach (ICD-10-PCS; 2019-07-23)
PROC: 0KBP0ZZ Excision of Left Hip Muscle, Open Approach (ICD-10-PCS; principal; 2019-07-25)
PROC: 0KBN0ZZ Excision of Right Hip Muscle, Open Approach (ICD-10-PCS; principal; 2019-07-25)
PROC: 0BJ08ZZ Inspection of Tracheobronchial Tree, Via Natural or Artificial Opening Endoscopic (ICD-10-PCS; 2019-07-26)
PROC: 0DJD8ZZ Inspection of Lower Intestinal Tract, Via Natural or Artificial Opening Endoscopic (ICD-10-PCS; 2019-07-27)
PROC: 0DJ08ZZ Inspection of Upper Intestinal Tract, Via Natural or Artificial Opening Endoscopic (ICD-10-PCS; 2019-07-27)
PROC: 0QB10ZZ Excision of Sacrum, Open Approach (ICD-10-PCS; 2019-07-29)
PROC: 0QB10ZZ Excision of Sacrum, Open Approach (ICD-10-PCS; 2019-08-01)
DX: A41.9 Sepsis, unspecified organism (principal); R65.21 Severe sepsis with septic shock; J96.21 Acute and chronic respiratory failure with hypoxia; N17.0 Acute kidney failure with tubular necrosis; I21.A1 Myocardial infarction type 2; J18.9 Pneumonia, unspecified organism; Z99.11 Dependence on respirator [ventilator] status; G93.41 Metabolic encephalopathy; J44.0 Chronic obstructive pulmonary disease with (acute) lower respiratory infection; J90 Pleural effusion, not elsewhere classified; L89.154 Pressure ulcer of sacral region, stage 4; I82.413 Acute embolism and thrombosis of femoral vein, bilateral; D69.6 Thrombocytopenia, unspecified; E86.1 Hypovolemia; N39.0 Urinary tract infection, site not specified; Z93.0 Tracheostomy status; I82.621 Acute embolism and thrombosis of deep veins of right upper extremity; E03.9 Hypothyroidism, unspecified; B96.1 Klebsiella pneumoniae [K. pneumoniae] as the cause of diseases classified elsewhere; Z16.24 Resistance to multiple antibiotics; D50.0 Iron deficiency anemia secondary to blood loss (chronic); E78.5 Hyperlipidemia, unspecified; E78.00 Pure hypercholesterolemia, unspecified; E87.2 Acidosis; E87.6 Hypokalemia; J98.11 Atelectasis; L30.4 Erythema intertrigo; L98.8 Other specified disorders of the skin and subcutaneous tissue; K57.31 Diverticulosis of large intestine without perforation or abscess with bleeding; K62.89 Other specified diseases of anus and rectum; L30.9 Dermatitis, unspecified; K20.9 Esophagitis, unspecified; I10 Essential (primary) hypertension; R13.10 Dysphagia, unspecified; J44.9 Chronic obstructive pulmonary disease, unspecified; R19.02 Left upper quadrant abdominal swelling, mass and lump; E04.9 Nontoxic goiter, unspecified; E11.69 Type 2 diabetes mellitus with other specified complication; M86.9 Osteomyelitis, unspecified
CPT/HCPCS: 31623; 31720; 36415; 36569; 36600; 70450-TC; 71045-TC; 71250-TC; 74018; 76942-TC; 80048-TC; 80053-TC; 80076-TC; 80150; 80202-TC; 81000-TC; 82272-TC; 82533; 82728-TC; 82803-TC; 82962-TC; 83540-TC; 83605-TC; 83735-TC; 83880; 84100-TC; 84443-TC; 84484-TC; 85025-TC; 85027-TC; 85610-TC; 85730-TC; 86850-TC; 86921-TC; 87040-TC; 87070-TC; 87075-TC; 87081-TC; 87086-TC; 87102-TC; 87186-TC; 88112-TC; 88305-TC; 88312-TC; 89051-TC; 92950-TC; 93307-TC; 93970-TC; 93971-TC; 94002-TC; 94003-TC; 94640-TC; 94668-TC; 94760-TC; 94762-TC; 99082-TC; A4216; A4623; A6253; A6403; A7526; C1751; C9113; G0378; J0171; J0278; J0461; J0770; J1642; J1644; J1720; J1815; J2185; J2354; J2405; J2704; J3370; J3480; J3490; J7030; J7042; J7050; J7060; P9016-BL; P9047